=== PATIENT | male | born 1940 | race Caucasian/White ===

== ENCOUNTER 2016-10-28 09:35 | Inpatient (IN) | payer MEDICARE, BC ==
[~2016-10-28] VITALS: Ht 167.6 cm; Wt 63.6 kg
[~2016-10-28 09:35] MED LIST: ASPI-515 PO; BISA10SU54 PR; CIPR250T27 PO; FINA5TAB PO; HYDR-3240 PO; TERA1CAP3 PO
[2016-10-28] MEDS ORDERED: ASPIRIN 81 MG TABLET CHEW ONE (10:49)
[2016-10-28] MEDS ORDERED: ASPIRIN 81 MG TABLET CHEW PO ONE (11:00)
[2016-10-28] MEDS ORDERED: SODIUM CHLORIDE FLUSH 10ML SYR IVF ONE (11:00)
[2016-10-28 11:01] LABS: BLOOD UREA NITROGEN 22 mg/dL (7-18)
[2016-10-28 11:07] LABS: ASPARTATE AMINO TRANSFERASE 30 U/L (15-37)
[2016-10-28 11:10] LABS: IS PT STATUS REG ER OR PRE ER? YES
[2016-10-28] MEDS ORDERED: LISINOPRIL 10 MG TABLET PO SCH (12:00)
[2016-10-28] MEDS ORDERED: BISACODYL 10 MG SUPP PR PRN (12:30)
[2016-10-28] MEDS ORDERED: ACETAMINOPHEN 325 MG TABLET PO PRN (12:30)
[2016-10-28] MEDS ORDERED: DOCUSATE 100 MG CAPSULE PO PRN (12:30)
[2016-10-28] MEDS ORDERED: HEPARIN 5,000 UNITS/ML, 1ML IV PRN (12:30)
[2016-10-28] MEDS ORDERED: POLYETHYLENE GLYCOL 17 GM PACKET PO PRN (12:30)
[2016-10-28] MEDS ORDERED: MORPHINE SULFATE 4 MG/ML, 1ML IVPush PRN (12:30)
[2016-10-28] MEDS ORDERED: HEPARIN 5,000 UNITS/ML, 1ML IV ONE (12:30)
[2016-10-28] MEDS ORDERED: HEPARIN 25,000 UNITS/500ML PMX 500 ML IV PRN (12:30)
[2016-10-28 13:36] VITALS: BP 175/93
[2016-10-28 14:00] VITALS: BP 175/93
[2016-10-28] MEDS ORDERED: LISINOPRIL 5 MG TABLET PO SCH (16:25)
[2016-10-28 18:13] LABS: IS PT STATUS REG ER OR PRE ER? NO
[2016-10-28 20:24] VITALS: BP 140/79
[2016-10-28] MEDS: ATORVASTATIN 80 MG TABLET PO SCH (21:39)
[2016-10-29 00:13] LABS: IS PT STATUS REG ER OR PRE ER? NO
[2016-10-29 01:31] VITALS: BP 138/74
[2016-10-29 05:25] LABS: ASPARTATE AMINO TRANSFERASE 25 U/L (15-37); BLOOD UREA NITROGEN 23 mg/dL (7-18)
[2016-10-29] MEDS: ASPIRIN 81 MG TABLET EC PO SCH (06:09)
[2016-10-29 07:05] VITALS: BP 142/79
[2016-10-29] MEDS: METOPROLOL TARTRATE 25 MG TABLET PO SCH ×2 (08:51→18:34)
[2016-10-29] MEDS ORDERED: VERAPAMIL 2.5 MG/ML, 2ML ONE (12:05)
[2016-10-29] MEDS ORDERED: MIDAZOLAM 1 MG/ML, 5ML ONE (12:05)
[2016-10-29] MEDS ORDERED: TICAGRELOR 90 MG TABLET ONE (12:05)
[2016-10-29] MEDS ORDERED: BIVALIRUDIN 250 MG ONE (12:05)
[2016-10-29] MEDS ORDERED: HEPARIN 1,000 UNITS/ML, 10ML ONE (12:05)
[2016-10-29] MEDS ORDERED: NITROGLYCERIN 5 MG/ML, 10ML ONE (12:05)
[2016-10-29] MEDS ORDERED: FENTANYL PF 100 MCG/2ML ONE (12:05)
[2016-10-29] MEDS ORDERED: LIDOCAINE 2%, 20ML ONE (12:05)
[2016-10-29 13:42] VITALS: BP 127/81
[2016-10-29] MEDS: ATORVASTATIN 80 MG TABLET PO SCH (19:51)
[2016-10-29 21:46] VITALS: BP 151/79
[2016-10-30 01:29] VITALS: BP 122/74
[2016-10-30] MEDS: ASPIRIN 81 MG TABLET EC PO SCH (05:26)
[2016-10-30] MEDS: METOPROLOL TARTRATE 25 MG TABLET PO SCH (05:27)
[2016-10-30 05:56] LABS: BLOOD UREA NITROGEN 25 mg/dL (7-18)
[2016-10-30 07:25] VITALS: BP 123/77
[2016-10-30] MEDS ORDERED: ATOR80TA75 PO (08:02)
[2016-10-30] MEDS ORDERED: LISI-167 PO (08:02)
[2016-10-30] MEDS ORDERED: ASPI-621 PO (08:02)
[2016-10-30] MEDS ORDERED: CLOP75TA22 PO (08:09)
[2016-10-30] MEDS ORDERED: LISINOPRIL 10 MG TABLET PO SCH (09:00)
== END 2016-10-30 10:15 | disposition home or self-care (01) | DRG 281 ==
LOC: ED 10:35 → EDIP 11:40 → 5SO 13:04 → DCLOUNGE 10-30 09:48
PROVIDERS: ADMIT Family Medicine
PROC: 4A023N7 Measurement of Cardiac Sampling and Pressure, Left Heart, Percutaneous Approach (ICD-10-PCS; principal; 2016-10-29)
PROC: B2111ZZ Fluoroscopy of Multiple Coronary Arteries using Low Osmolar Contrast (ICD-10-PCS; 2016-10-29)
PROC: B2131ZZ Fluoroscopy of Multiple Coronary Artery Bypass Grafts using Low Osmolar Contrast (ICD-10-PCS; 2016-10-29)
PROC: B2151ZZ Fluoroscopy of Left Heart using Low Osmolar Contrast (ICD-10-PCS; 2016-10-29)
DX: I21.4 Non-ST elevation (NSTEMI) myocardial infarction (principal); E44.1 Mild protein-calorie malnutrition; I44.7 Left bundle-branch block, unspecified; I25.110 Atherosclerotic heart disease of native coronary artery with unstable angina pectoris; D64.9 Anemia, unspecified; E78.5 Hyperlipidemia, unspecified; H35.30 Unspecified macular degeneration; R19.5 Other fecal abnormalities; I11.9 Hypertensive heart disease without heart failure; N40.0 Benign prostatic hyperplasia without lower urinary tract symptoms; Z66 Do not resuscitate; Z79.82 Long term (current) use of aspirin; Z87.891 Personal history of nicotine dependence; Z90.49 Acquired absence of other specified parts of digestive tract; Z95.1 Presence of aortocoronary bypass graft
CPT/HCPCS: 36415; 71010; 80048; 80053; 80061; 81001; 83690; 83735; 84100; 84443; 84484; 85025; 85520; 85610; 85730; 87086; 87106; 93005; 93306; 93459; C1760; C1769; C1894; J0583; J1644; J2250; J3010; J3490; Q9967

== ENCOUNTER 2016-11-02 21:28 | Inpatient (IN) | payer MEDICARE, BC ==
[~2016-11-02] VITALS: Ht 167.6 cm; Wt 64.8 kg
[~2016-11-02 21:28] MED LIST changes: +ASPI-621 PO; +ATOR80TA75 PO; +CLOP75TA22 PO; +LISI-167 PO
[2016-11-02 23:34] LABS: ASPARTATE AMINO TRANSFERASE 28 U/L (15-37); BLOOD UREA NITROGEN 28 mg/dL (7-18)
[2016-11-03 05:14] LABS: IS PT STATUS REG ER OR PRE ER? YES
[2016-11-03] MEDS ORDERED: SODIUM CHLORIDE 0.9% 1,000 ML IV ONE (06:25)
[2016-11-03] MEDS ORDERED: ONDANSETRON 2MG/ML, 2ML IVPush PRN ×2 (06:30→13:00)
[2016-11-03] MEDS ORDERED: MORPHINE SULFATE 4 MG/ML, 1ML IVPush PRN (06:30)
[2016-11-03] MEDS ORDERED: CLOPIDOGREL 75 MG TABLET PO SCH (09:00)
[2016-11-03] MEDS ORDERED: OMNIPAQUE 350 MG/ML, 150 ML BOTTLE ONE (09:06)
[2016-11-03 09:19] VITALS: BP 146/78
[2016-11-03] MEDS: LISINOPRIL 10 MG TABLET PO SCH (10:47)
[2016-11-03] MEDS: SODIUM CHLORIDE 0.9% 1,000 ML IV SCH ×3 (10:47→23:18)
[2016-11-03] MEDS ORDERED: MIDAZOLAM 1 MG/ML, 2ML ONE (11:39)
[2016-11-03] MEDS ORDERED: FENTANYL PF 250 MCG/5ML ONE (11:39)
[2016-11-03] MEDS ORDERED: ETOMIDATE 20 MG/10 ML ONE (12:05)
[2016-11-03] MEDS ORDERED: EPHEDRINE 50 MG/ML, 1ML ONE (12:05)
[2016-11-03] MEDS ORDERED: PHENYLEPHRINE 10 MG/ML ONE (12:05)
[2016-11-03] MEDS ORDERED: LABETALOL 5MG/ML, 20ML IV PRN (13:00)
[2016-11-03] MEDS ORDERED: EPHEDRINE 50 MG/ML, 1ML IVPush PRN (13:00)
[2016-11-03] MEDS ORDERED: FENTANYL PF 100 MCG/2ML IV PRN (13:00)
[2016-11-03] MEDS ORDERED: hydrALAzine 20 MG/ML, 1ML IV PRN (13:00)
[2016-11-03] MEDS ORDERED: METOCLOPRAMIDE 5 MG/ML, 2ML IV PRN (13:00)
[2016-11-03] MEDS ORDERED: HYDROmorphone 1 MG/ML, 1ML IV PRN (13:00)
[2016-11-03] MEDS ORDERED: ACETAMINOPHEN 325 MG TABLET PO PRN (13:00)
[2016-11-03] MEDS ORDERED: METOPROLOL 1 MG/ML, 5ML IV PRN (13:00)
[2016-11-03] MEDS ORDERED: PROMETHAZINE 25 MG/ML, 1ML IV PRN (13:00)
[2016-11-03] MEDS ORDERED: OXYcodone 5 MG/5 ML ORAL.SOL UDC ONE ×2 (13:04→13:43)
[2016-11-03] MEDS: OXYcodone 5 MG/5 ML ORAL.SOL UDC PO PRN ×2 (13:05→13:40)
[2016-11-03] MEDS ORDERED: FENTANYL PF 100 MCG/2ML ONE (13:43)
[2016-11-03 13:57] VITALS: BP 111/64
[2016-11-03 20:00] VITALS: BP 99/62
[2016-11-03] MEDS: ATORVASTATIN 80 MG TABLET PO SCH (22:00)
[2016-11-03] MEDS: ONDANSETRON 2MG/ML, 2ML IVP PRN (23:13)
[2016-11-04 01:44] VITALS: BP 107/60
[2016-11-04 06:05] LABS: BLOOD UREA NITROGEN 22 mg/dL (7-18)
[2016-11-04 07:48] VITALS: BP 103/58
[2016-11-04] MEDS: LISINOPRIL 10 MG TABLET PO SCH (09:31)
[2016-11-04] MEDS: SODIUM CHLORIDE 0.9% 1,000 ML IV SCH ×2 (09:34→20:00)
[2016-11-04 13:41] VITALS: BP 101/61
[2016-11-04] MEDS: FINASTERIDE 5 MG TABLET PO SCH (13:44)
[2016-11-04 19:25] VITALS: BP 103/62
[2016-11-04] MEDS: ATORVASTATIN 80 MG TABLET PO SCH (20:56)
[2016-11-05] VITALS (10 sets, daily range): BP systolic 91–117; BP diastolic 54–72
[2016-11-05 06:54] LABS: BLOOD UREA NITROGEN 19 mg/dL (7-18)
[2016-11-05] MEDS: LISINOPRIL 10 MG TABLET PO SCH (08:59)
[2016-11-05] MEDS: FINASTERIDE 5 MG TABLET PO SCH (09:00)
[2016-11-05] MEDS: SODIUM CHLORIDE 0.9% 1,000 ML IV SCH (13:14)
[2016-11-05] MEDS: ATORVASTATIN 80 MG TABLET PO SCH (20:14)
[2016-11-06 01:42] VITALS: BP 106/73
[2016-11-06] MEDS: SODIUM CHLORIDE 0.9% 1,000 ML IV SCH ×3 (02:00→22:00)
[2016-11-06 06:28] LABS: BLOOD UREA NITROGEN 18 mg/dL (7-18)
[2016-11-06 07:09] VITALS: BP 114/68
[2016-11-06] MEDS: LISINOPRIL 10 MG TABLET PO SCH (08:52)
[2016-11-06] MEDS: FINASTERIDE 5 MG TABLET PO SCH (08:52)
[2016-11-06] MEDS: FLUCONAZOLE 400 MG/200 ML 200 ML IV SCH (08:53)
[2016-11-06 13:34] VITALS: BP 153/89
[2016-11-06 18:48] VITALS: BP 159/93
[2016-11-06] MEDS: ATORVASTATIN 80 MG TABLET PO SCH (21:24)
[2016-11-07 01:09] VITALS: BP 152/87
[2016-11-07 06:57] VITALS: BP 149/89
[2016-11-07] MEDS: SODIUM CHLORIDE 0.9% 1,000 ML IV SCH ×2 (08:00→22:10)
[2016-11-07] MEDS: ACETAMINOPHEN 325 MG TABLET PO PRN (08:14)
[2016-11-07] MEDS: ONDANSETRON 2MG/ML, 2ML IVP PRN (08:14)
[2016-11-07] MEDS: FINASTERIDE 5 MG TABLET PO SCH (09:01)
[2016-11-07] MEDS: LISINOPRIL 10 MG TABLET PO SCH (09:01)
[2016-11-07] MEDS: FLUCONAZOLE 400 MG/200 ML 200 ML IV SCH (09:02)
[2016-11-07 12:37] LABS: BLOOD UREA NITROGEN 11 mg/dL (7-18)
[2016-11-07 13:05] VITALS: BP 124/80
[2016-11-07 17:44] VITALS: BP 143/95
[2016-11-07 21:38] VITALS: BP 128/74
[2016-11-07] MEDS: ATORVASTATIN 80 MG TABLET PO SCH (22:10)
[2016-11-07] MEDS ORDERED: OPIUM/BELLADONNA SUPP.RECT 16.2-30 MG PR PRN (23:30)
[2016-11-08 00:27] VITALS: BP 127/76
[2016-11-08] MEDS: ACETAMINOPHEN 325 MG TABLET PO PRN (01:28)
[2016-11-08 08:27] VITALS: BP 109/59
[2016-11-08] MEDS: SODIUM CHLORIDE 0.9% 1,000 ML IV SCH ×2 (09:18→20:20)
[2016-11-08] MEDS: FLUCONAZOLE 400 MG/200 ML 200 ML IV SCH (09:18)
[2016-11-08] MEDS: FINASTERIDE 5 MG TABLET PO SCH (09:19)
[2016-11-08] MEDS: LISINOPRIL 10 MG TABLET PO SCH (09:19)
[2016-11-08 14:00] VITALS: BP 128/73
[2016-11-08] MEDS ORDERED: LEVOFLOXACIN/PMX 750MG/150ML 150 ML IV SCH (15:30)
[2016-11-08] MEDS ORDERED: KETOROLAC 30 MG/1 ML IVPush PRN (17:00)
[2016-11-08 19:22] VITALS: BP 119/68
[2016-11-08] MEDS: ATORVASTATIN 80 MG TABLET PO SCH (20:19)
[2016-11-09 00:24] VITALS: BP 132/72
[2016-11-09] MEDS: SODIUM CHLORIDE 0.9% 1,000 ML IV SCH ×2 (06:45→16:00)
[2016-11-09 07:20] VITALS: BP 136/61
[2016-11-09] MEDS: FLUCONAZOLE 400 MG/200 ML 200 ML IV SCH (07:29)
[2016-11-09] MEDS: FINASTERIDE 5 MG TABLET PO SCH (08:37)
[2016-11-09] MEDS: LISINOPRIL 10 MG TABLET PO SCH (08:37)
[2016-11-09 14:21] VITALS: BP 154/88
[2016-11-09 18:35] VITALS: BP 140/108
[2016-11-09 19:35] VITALS: BP 127/86
[2016-11-09] MEDS: ATORVASTATIN 80 MG TABLET PO SCH (22:13)
[2016-11-10 01:37] VITALS: BP 185/91
[2016-11-10] MEDS: SODIUM CHLORIDE 0.9% 1,000 ML IV SCH (02:00)
[2016-11-10 07:25] VITALS: BP 129/67
[2016-11-10] MEDS: LISINOPRIL 10 MG TABLET PO SCH (08:24)
[2016-11-10] MEDS: FINASTERIDE 5 MG TABLET PO SCH (08:24)
[2016-11-10] MEDS: FLUCONAZOLE 400 MG/200 ML 200 ML IV SCH (08:24)
[2016-11-10] MEDS ORDERED: FINA5TAB4 PO (09:28)
[2016-11-10] MEDS ORDERED: TAMS-11 PO (09:29)
[2016-11-10 12:45] VITALS: BP 134/71
== END 2016-11-10 14:15 | disposition home or self-care (01) | DRG 690 ==
LOC: ED 11-03 00:22 → EDIP 11-03 06:25 → 5SO 11-03 09:11 → 3NE 11-07 17:36
PROVIDERS: ADMIT Internal Medicine; ATTEND Internal Medicine
PROC: 0TCB8ZZ Extirpation of Matter from Bladder, Via Natural or Artificial Opening Endoscopic (ICD-10-PCS; principal; 2016-11-03 12:00)
PROC: 30233N1 Transfusion of Nonautologous Red Blood Cells into Peripheral Vein, Percutaneous Approach (ICD-10-PCS; 2016-11-05)
DX: N30.01 Acute cystitis with hematuria (principal); B37.41 Candidal cystitis and urethritis; D62 Acute posthemorrhagic anemia; I50.30 Unspecified diastolic (congestive) heart failure; I65.22 Occlusion and stenosis of left carotid artery; N40.1 Benign prostatic hyperplasia with lower urinary tract symptoms; I25.10 Atherosclerotic heart disease of native coronary artery without angina pectoris; H35.30 Unspecified macular degeneration; I11.0 Hypertensive heart disease with heart failure; R33.8 Other retention of urine; N28.1 Cyst of kidney, acquired; Z66 Do not resuscitate; Z90.49 Acquired absence of other specified parts of digestive tract; Z95.1 Presence of aortocoronary bypass graft; Z79.82 Long term (current) use of aspirin; I25.2 Old myocardial infarction; Z79.899 Other long term (current) drug therapy; Z88.0 Allergy status to penicillin; Z88.1 Allergy status to other antibiotic agents; T45.525A Adverse effect of antithrombotic drugs, initial encounter
CPT/HCPCS: 36415; 71010; 74178; 76770; 80048; 80053; 81001; 83735; 84484; 85025; 86850; 86900; 86923; 87077; 87086; 87106; 87186; 87324; 93005; 93880; 96360; J1450; J1885; J2250; J2405; J3010; Q9967; J2370; J7030; P9016

== ENCOUNTER 2017-01-02 09:50 | Emergency (ER) | payer MEDICARE, BC ==
[~2017-01-02] VITALS: Ht 167.6 cm; Wt 65.3 kg
[~2017-01-02 09:50] MED LIST changes: +FINA5TAB4 PO; +TAMS-11 PO
[2017-01-02 11:22] LABS: BLOOD UREA NITROGEN 26 mg/dL (7-18)
[2017-01-02] MEDS ORDERED: CEFTRIAXONE PMX 1GM/50ML 50 ML IV ONE (12:00)
[2017-01-02 12:29] VITALS: BP 144/83
== END 2017-01-02 12:31 | disposition home or self-care (01) ==
LOC: ED 12:02
DX: N40.1 Benign prostatic hyperplasia with lower urinary tract symptoms (principal); N30.01 Acute cystitis with hematuria; Z20.2 Contact with and (suspected) exposure to infections with a predominantly sexual mode of transmission
CPT/HCPCS: 36415; 51702; 74176; 80048; 81001; 82040; 85025; 85610; 85730; 87077; 87086; 87186

== ENCOUNTER 2017-01-04 02:45 | Emergency (ER) | payer MEDICARE, BC ==
[~2017-01-04] VITALS: Ht 167.6 cm; Wt 65.1 kg
[2017-01-04 05:20] VITALS: BP 104/57
== END 2017-01-04 05:26 | disposition home or self-care (01) ==
LOC: ED 03:09
DX: N40.1 Benign prostatic hyperplasia with lower urinary tract symptoms (principal); R33.8 Other retention of urine
CPT/HCPCS: 81001; 87077; 87086; 87186; 99284

== ENCOUNTER 2017-01-14 12:46 | Emergency (ER) | payer MEDICARE, BC ==
[~2017-01-14] VITALS: Ht 167.6 cm; Wt 63.5 kg
[2017-01-14 12:51] VITALS: BP 137/84
[2017-01-14] MEDS ORDERED: OXYcodone/APAP 5/325MG TABLET PO ONE (14:00)
[2017-01-14] MEDS ORDERED: OXYcodone/APAP 10/325MG TABLET ONE (14:20)
[2017-01-14 14:49] LABS: BLOOD UREA NITROGEN 22 mg/dL (7-18)
== END 2017-01-14 15:35 | disposition home or self-care (01) ==
LOC: ED 14:16
DX: M25.522 Pain in left elbow (principal); M13.122 Monoarthritis, not elsewhere classified, left elbow; I25.810 Atherosclerosis of coronary artery bypass graft(s) without angina pectoris; Z95.1 Presence of aortocoronary bypass graft
CPT/HCPCS: 36415; 80048; 84550; 85025; 99285

== ENCOUNTER 2017-06-30 09:48 | Inpatient (IN) | payer MEDICARE, BC ==
[~2017-06-30] VITALS: Ht 167.6 cm; Wt 62.9 kg
[~2017-06-30 09:48] MED LIST changes: +ATOR-2 PO; -ATOR80TA75 PO; -CLOP75TA22 PO; +CLOP75TA52 PO
[2017-06-30] MEDS ORDERED: ASPI-496 PO (10:00)
[2017-06-30 10:45] LABS: BASOPHILS # (AUTO) 0.04 x10^3/uL (0-0.1); BASOPHILS % (AUTO) 1 % (0-1); EOSINOPHILS # (AUTO) 0.12 x10^3/uL (0-0.4); EOSINOPHILS % (AUTO) 3 % (1-7); LYMPHOCYTES # (AUTO) 0.84 x10^3/uL (1-3.4); LYMPHOCYTES % (AUTO) 17 % (22-44); MD NO; MEAN CORPUSCULAR HEMOGLOBIN 25.2 pg (27.5-34.5); MEAN CORPUSCULAR HGB CONC 31.5 g/dL (33.2-36.2); MEAN CORPUSCULAR VOLUME 79.9 fL (81-97); MEAN PLATELET VOLUME 7.8 fL (7.4-10.4); MONOCYTES # (AUTO) 0.52 x10^3/uL (0.2-0.8); MONOCYTES % (AUTO) 11 % (2-9); NEUTROPHILS # (AUTO) 3.37 x10^3/uL (1.8-6.8); NEUTROPHILS % (AUTO) 69 % (42-75); PLATELET COUNT 224 x10^3/uL (130-400); RED BLOOD COUNT 4.21 x10^6/uL (4.38-5.82); RED CELL DISTRIBUTION WIDTH 17.9 % (9.4-14.8)
[2017-06-30 10:56] LABS: ALANINE AMINOTRANSFERASE 18 U/L (12-78); ANION GAP 6 mmol/L (5-15); CALCIUM 8.1 mg/dL (8.5-10.1); CHLORIDE 106 mmol/L (98-107)
[2017-06-30 10:59] LABS: ALKALINE PHOSPHATASE 61 U/L (45-117); BILIRUBIN,TOTAL 0.7 mg/dL (0.2-1.0); CREATININE 0.93 mg/dL (0.7-1.3); TOTAL PROTEIN 6.5 g/dL (6.4-8.2)
[2017-06-30 11:13] LABS: MICROSCOPIC INDICATED
[2017-06-30 11:17] LABS: CULTURE INDICATED? YES
[2017-06-30] MEDS ORDERED: CEFTRIAXONE 1,000 MG ONE (11:45)
[2017-06-30] MEDS ORDERED: CEFTRIAXONE 1,000 MG IM ONE (12:00)
[2017-06-30 12:06] LABS: INTERNATIONAL NORMALIZED RATIO 1.04 (0.93-1.1); PROTHROMBIN TIME 10.7 Seconds (9.6-11.5)
[2017-06-30] MEDS ORDERED: ONDANSETRON 2MG/ML, 2ML IVPush PRN (13:30)
[2017-06-30] MEDS ORDERED: ACETAMINOPHEN 325 MG TABLET PO PRN (13:30)
[2017-06-30] MEDS ORDERED: DOCUSATE 100 MG CAPSULE PO PRN (13:30)
[2017-06-30 15:18] VITALS: BP 153/91
[2017-06-30] MEDS: SODIUM CHLORIDE 0.9% 1,000 ML IV SCH (15:35)
[2017-06-30 15:47] VITALS: BP 139/85
[2017-06-30] MEDS: FINASTERIDE 5 MG TABLET PO SCH (16:46)
[2017-06-30 19:26] VITALS: BP 120/72
[2017-07-01] MEDS: SODIUM CHLORIDE 0.9% 1,000 ML IV SCH ×3 (01:04→20:52)
[2017-07-01 01:33] VITALS: BP 142/82
[2017-07-01 05:59] LABS: BASOPHILS # (AUTO) 0.03 x10^3/uL (0-0.1); BASOPHILS % (AUTO) 1 % (0-1); EOSINOPHILS # (AUTO) 0.08 x10^3/uL (0-0.4); EOSINOPHILS % (AUTO) 2 % (1-7); LYMPHOCYTES # (AUTO) 0.99 x10^3/uL (1-3.4); LYMPHOCYTES % (AUTO) 18 % (22-44); MD NO; MEAN CORPUSCULAR HEMOGLOBIN 25.9 pg (27.5-34.5); MEAN CORPUSCULAR HGB CONC 32.3 g/dL (33.2-36.2); MEAN CORPUSCULAR VOLUME 80.2 fL (81-97); MEAN PLATELET VOLUME 8.2 fL (7.4-10.4); MONOCYTES # (AUTO) 0.57 x10^3/uL (0.2-0.8); MONOCYTES % (AUTO) 10 % (2-9); NEUTROPHILS # (AUTO) 3.89 x10^3/uL (1.8-6.8); NEUTROPHILS % (AUTO) 70 % (42-75); PLATELET COUNT 221 x10^3/uL (130-400); RED BLOOD COUNT 4.12 x10^6/uL (4.38-5.82); RED CELL DISTRIBUTION WIDTH 17.9 % (9.4-14.8)
[2017-07-01 06:08] LABS: ALBUMIN 2.8 g/dL (3.4-5.0); ANION GAP 5 mmol/L (5-15); CALCIUM 8.4 mg/dL (8.5-10.1); CHLORIDE 109 mmol/L (98-107)
[2017-07-01 06:10] LABS: ALANINE AMINOTRANSFERASE 15 U/L (12-78); ALKALINE PHOSPHATASE 65 U/L (45-117); BILIRUBIN,TOTAL 0.8 mg/dL (0.2-1.0); CREATININE 0.89 mg/dL (0.7-1.3); TOTAL PROTEIN 6.4 g/dL (6.4-8.2)
[2017-07-01 07:56] VITALS: BP 156/79
[2017-07-01] MEDS ORDERED: CEFTRIAXONE PMX 1GM/50ML 50 ML IV SCH (08:00)
[2017-07-01] MEDS: FINASTERIDE 5 MG TABLET PO SCH (08:02)
[2017-07-01 11:24] LABS: CHOL/HDL RATIO 3.5; LDL/HDL RATIO 2.2 (0.5-3.0)
[2017-07-01] MEDS: CEFTRIAXONE 1,000 MG in DEXTROSE 5% 50 ML IV SCH (12:35)
[2017-07-01 15:10] VITALS: BP 136/79
[2017-07-01 19:28] VITALS: BP 131/74
[2017-07-02 01:28] VITALS: BP 156/90
[2017-07-02 05:04] LABS: ANION GAP 6 mmol/L (5-15); CALCIUM 8.1 mg/dL (8.5-10.1); CHLORIDE 108 mmol/L (98-107); CREATININE 0.92 mg/dL (0.7-1.3)
[2017-07-02 05:05] LABS: BASOPHILS # (AUTO) 0.02 x10^3/uL (0-0.1); BASOPHILS % (AUTO) 0 % (0-1); EOSINOPHILS # (AUTO) 0.14 x10^3/uL (0-0.4); EOSINOPHILS % (AUTO) 2 % (1-7); LYMPHOCYTES # (AUTO) 1.05 x10^3/uL (1-3.4); LYMPHOCYTES % (AUTO) 17 % (22-44); MD NO; MEAN CORPUSCULAR HEMOGLOBIN 25.9 pg (27.5-34.5); MEAN CORPUSCULAR HGB CONC 31.9 g/dL (33.2-36.2); MEAN CORPUSCULAR VOLUME 81.1 fL (81-97); MEAN PLATELET VOLUME 8.1 fL (7.4-10.4); MONOCYTES # (AUTO) 0.61 x10^3/uL (0.2-0.8); MONOCYTES % (AUTO) 10 % (2-9); NEUTROPHILS # (AUTO) 4.24 x10^3/uL (1.8-6.8); NEUTROPHILS % (AUTO) 70 % (42-75); PLATELET COUNT 236 x10^3/uL (130-400); RED BLOOD COUNT 4.21 x10^6/uL (4.38-5.82); RED CELL DISTRIBUTION WIDTH 17.5 % (9.4-14.8)
[2017-07-02 08:15] VITALS: BP 166/95
[2017-07-02] MEDS: SODIUM CHLORIDE 0.9% 1,000 ML IV SCH ×3 (08:30→20:18)
[2017-07-02] MEDS: FINASTERIDE 5 MG TABLET PO SCH (10:08)
[2017-07-02] MEDS: CEFTRIAXONE 1,000 MG in DEXTROSE 5% 50 ML IV SCH (12:27)
[2017-07-02 14:51] VITALS: BP 125/77
[2017-07-02] MEDS: AMLODIPINE 5 MG TABLET PO SCH (14:59)
[2017-07-02] MEDS: SIMETHICONE 125 MG CHEW TAB PO SCH ×2 (17:56→20:17)
[2017-07-02 20:16] VITALS: BP 113/65
[2017-07-03 02:39] VITALS: BP 133/80
[2017-07-03 05:59] LABS: BASOPHILS # (AUTO) 0.02 x10^3/uL (0-0.1); BASOPHILS % (AUTO) 0 % (0-1); EOSINOPHILS # (AUTO) 0.11 x10^3/uL (0-0.4); EOSINOPHILS % (AUTO) 2 % (1-7); LYMPHOCYTES # (AUTO) 1.25 x10^3/uL (1-3.4); LYMPHOCYTES % (AUTO) 18 % (22-44); MD NO; MEAN CORPUSCULAR HEMOGLOBIN 25.7 pg (27.5-34.5); MEAN CORPUSCULAR HGB CONC 31.9 g/dL (33.2-36.2); MEAN CORPUSCULAR VOLUME 80.6 fL (81-97); MEAN PLATELET VOLUME 7.9 fL (7.4-10.4); MONOCYTES # (AUTO) 0.73 x10^3/uL (0.2-0.8); MONOCYTES % (AUTO) 11 % (2-9); NEUTROPHILS # (AUTO) 4.75 x10^3/uL (1.8-6.8); NEUTROPHILS % (AUTO) 69 % (42-75); PLATELET COUNT 231 x10^3/uL (130-400); RED BLOOD COUNT 4.19 x10^6/uL (4.38-5.82); RED CELL DISTRIBUTION WIDTH 17.8 % (9.4-14.8)
[2017-07-03 06:11] LABS: CHLORIDE 108 mmol/L (98-107)
[2017-07-03 06:22] LABS: ANION GAP 7 mmol/L (5-15); CALCIUM 8.4 mg/dL (8.5-10.1); CREATININE 0.86 mg/dL (0.7-1.3)
[2017-07-03] MEDS: SIMETHICONE 125 MG CHEW TAB PO SCH ×4 (06:41→20:49)
[2017-07-03 08:04] VITALS: BP 150/82
[2017-07-03] MEDS: FINASTERIDE 5 MG TABLET PO SCH (08:47)
[2017-07-03] MEDS: AMLODIPINE 5 MG TABLET PO SCH (08:47)
[2017-07-03] MEDS: CEFTRIAXONE 1,000 MG in DEXTROSE 5% 50 ML IV SCH (12:38)
[2017-07-03 13:46] VITALS: BP 122/76
[2017-07-03] MEDS: SODIUM CHLORIDE 0.9% 1,000 ML IV SCH (14:30)
[2017-07-03 20:33] VITALS: BP 133/77
[2017-07-04] MEDS: SODIUM CHLORIDE 0.9% 1,000 ML IV SCH ×3 (00:30→20:30)
[2017-07-04 01:32] VITALS: BP 143/82
[2017-07-04 04:44] LABS: BASOPHILS # (AUTO) 0.04 x10^3/uL (0-0.1); BASOPHILS % (AUTO) 1 % (0-1); EOSINOPHILS # (AUTO) 0.13 x10^3/uL (0-0.4); EOSINOPHILS % (AUTO) 2 % (1-7); LYMPHOCYTES # (AUTO) 1.11 x10^3/uL (1-3.4); LYMPHOCYTES % (AUTO) 17 % (22-44); MD NO; MEAN CORPUSCULAR HEMOGLOBIN 25.9 pg (27.5-34.5); MEAN CORPUSCULAR HGB CONC 31.9 g/dL (33.2-36.2); MEAN CORPUSCULAR VOLUME 81.2 fL (81-97); MEAN PLATELET VOLUME 7.8 fL (7.4-10.4); MONOCYTES # (AUTO) 0.62 x10^3/uL (0.2-0.8); MONOCYTES % (AUTO) 10 % (2-9); NEUTROPHILS # (AUTO) 4.65 x10^3/uL (1.8-6.8); NEUTROPHILS % (AUTO) 71 % (42-75); PLATELET COUNT 260 x10^3/uL (130-400); RED BLOOD COUNT 4.27 x10^6/uL (4.38-5.82); RED CELL DISTRIBUTION WIDTH 17.9 % (9.4-14.8)
[2017-07-04 04:50] LABS: ANION GAP 5 mmol/L (5-15); CALCIUM 8.4 mg/dL (8.5-10.1); CHLORIDE 108 mmol/L (98-107); CREATININE 0.88 mg/dL (0.7-1.3)
[2017-07-04 07:19] VITALS: BP 133/77
[2017-07-04] MEDS: SIMETHICONE 125 MG CHEW TAB PO SCH ×4 (08:11→22:43)
[2017-07-04] MEDS: FINASTERIDE 5 MG TABLET PO SCH (08:11)
[2017-07-04] MEDS: AMLODIPINE 5 MG TABLET PO SCH (08:11)
[2017-07-04] MEDS: SULFAMETH./TRIMETHOPRIM DS 800MG/160MG TABLET PO SCH ×2 (08:11→22:43)
[2017-07-04 10:38] LABS: % IRON SATURATION 7 % (20-55); IRON LEVEL 21 mcg/dL (65-175); TOTAL IRON BINDING CAPACITY 307 mcg/dL (250-450)
[2017-07-04 13:48] VITALS: BP 138/81
[2017-07-04] MEDS ORDERED: IRON DEXTRAN IV PER PHARMACY IV PRN (17:00)
[2017-07-04] MEDS ORDERED: IRON DEXTRAN COMPLEX 25 MG in SODIUM CHLORIDE 0.9% 50 ML IV ONE (17:00)
[2017-07-04] MEDS ORDERED: IRON DEXTRAN COMPLEX IV ONE (19:00)
[2017-07-04] MEDS ORDERED: SODIUM CHLORIDE 0.9% IV ONE (19:00)
[2017-07-04 20:35] VITALS: BP 127/73
[2017-07-05 02:21] VITALS: BP 138/83
[2017-07-05 05:45] LABS: BASOPHILS # (AUTO) 0.04 x10^3/uL (0-0.1); BASOPHILS % (AUTO) 1 % (0-1); EOSINOPHILS # (AUTO) 0.09 x10^3/uL (0-0.4); EOSINOPHILS % (AUTO) 2 % (1-7); LYMPHOCYTES # (AUTO) 0.99 x10^3/uL (1-3.4); LYMPHOCYTES % (AUTO) 16 % (22-44); MD NO; MEAN CORPUSCULAR HEMOGLOBIN 26.1 pg (27.5-34.5); MEAN CORPUSCULAR HGB CONC 32.6 g/dL (33.2-36.2); MEAN CORPUSCULAR VOLUME 80.1 fL (81-97); MEAN PLATELET VOLUME 8.2 fL (7.4-10.4); MONOCYTES # (AUTO) 0.62 x10^3/uL (0.2-0.8); MONOCYTES % (AUTO) 10 % (2-9); NEUTROPHILS # (AUTO) 4.29 x10^3/uL (1.8-6.8); NEUTROPHILS % (AUTO) 71 % (42-75); PLATELET COUNT 242 x10^3/uL (130-400); RED BLOOD COUNT 4.14 x10^6/uL (4.38-5.82); RED CELL DISTRIBUTION WIDTH 17.6 % (9.4-14.8)
[2017-07-05 05:46] LABS: ANION GAP 8 mmol/L (5-15); CALCIUM 8.4 mg/dL (8.5-10.1); CHLORIDE 107 mmol/L (98-107); CREATININE 0.94 mg/dL (0.7-1.3)
[2017-07-05] MEDS: SODIUM CHLORIDE 0.9% 1,000 ML IV SCH ×2 (06:30→16:30)
[2017-07-05] MEDS: SIMETHICONE 125 MG CHEW TAB PO SCH ×4 (08:26→20:31)
[2017-07-05] MEDS: AMLODIPINE 5 MG TABLET PO SCH (08:26)
[2017-07-05] MEDS: FINASTERIDE 5 MG TABLET PO SCH (08:26)
[2017-07-05] MEDS: SULFAMETH./TRIMETHOPRIM DS 800MG/160MG TABLET PO SCH ×2 (08:26→20:31)
[2017-07-05 10:12] LABS: BASOPHILS # (AUTO) 0.02 x10^3/uL (0-0.1); BASOPHILS % (AUTO) 0 % (0-1); EOSINOPHILS # (AUTO) 0.08 x10^3/uL (0-0.4); EOSINOPHILS % (AUTO) 1 % (1-7); LYMPHOCYTES # (AUTO) 1.03 x10^3/uL (1-3.4); LYMPHOCYTES % (AUTO) 16 % (22-44); MD NO; MEAN CORPUSCULAR HEMOGLOBIN 25.9 pg (27.5-34.5); MEAN CORPUSCULAR HGB CONC 32.1 g/dL (33.2-36.2); MEAN CORPUSCULAR VOLUME 80.7 fL (81-97); MONOCYTES # (AUTO) 0.68 x10^3/uL (0.2-0.8); MONOCYTES % (AUTO) 10 % (2-9); NEUTROPHILS # (AUTO) 4.78 x10^3/uL (1.8-6.8); NEUTROPHILS % (AUTO) 73 % (42-75); PLATELET COUNT 254 x10^3/uL (130-400); RED BLOOD COUNT 4.29 x10^6/uL (4.38-5.82)
[2017-07-05 10:26] LABS: ANION GAP 8 mmol/L (5-15); CALCIUM 8.4 mg/dL (8.5-10.1); CHLORIDE 105 mmol/L (98-107); CREATININE 1.03 mg/dL (0.7-1.3)
[2017-07-05 10:29] LABS: ABSOLUTE RETICS # 0.068 x10^6/uL (0.5-1.5); RED BLOOD COUNT 4.33 x10^6/uL (4.38-5.82); RETICULOCYTE COUNT % 1.56 % (0.5-1.5)
[2017-07-05 10:53] LABS: FOLATE LEVEL 17.6 ng/mL (3.1-17.5)
[2017-07-05 15:00] VITALS: BP 110/73
[2017-07-05 20:14] VITALS: BP 118/70
[2017-07-06 00:41] VITALS: BP 116/70
[2017-07-06] MEDS: SODIUM CHLORIDE 0.9% 1,000 ML IV SCH ×2 (02:30→12:30)
[2017-07-06 07:44] VITALS: BP 126/72
[2017-07-06] MEDS: FINASTERIDE 5 MG TABLET PO SCH (07:47)
[2017-07-06] MEDS: SIMETHICONE 125 MG CHEW TAB PO SCH ×2 (07:47→11:00)
[2017-07-06] MEDS: AMLODIPINE 5 MG TABLET PO SCH (07:47)
[2017-07-06] MEDS: SULFAMETH./TRIMETHOPRIM DS 800MG/160MG TABLET PO SCH (07:47)
[2017-07-06 12:25] VITALS: BP 123/67
[2017-07-06] MEDS ORDERED: SULF-169 PO (13:37)
[2017-07-06] MEDS ORDERED: AMLO5TAB2 PO (13:37)
[2017-07-06] MEDS ORDERED: FINA5TAB4 PO (13:37)
== END 2017-07-06 16:15 | disposition home health service (06) | DRG 690 ==
LOC: ED 12:54 → SUATTDRO 13:00 → EDIP 13:00 → 4NOR 14:01
PROVIDERS: ADMIT Family Medicine; ATTEND Family Medicine
DX: N30.01 Acute cystitis with hematuria (principal); B95.7 Other staphylococcus as the cause of diseases classified elsewhere; F03.90 Unspecified dementia, unspecified severity, without behavioral disturbance, psychotic disturbance, mood disturbance, and anxiety; N13.8 Other obstructive and reflux uropathy; N40.1 Benign prostatic hyperplasia with lower urinary tract symptoms; N39.0 Urinary tract infection, site not specified; I11.9 Hypertensive heart disease without heart failure; I10 Essential (primary) hypertension; R31.0 Gross hematuria; I25.10 Atherosclerotic heart disease of native coronary artery without angina pectoris; D50.9 Iron deficiency anemia, unspecified; H35.30 Unspecified macular degeneration; H54.7 Unspecified visual loss; K59.00 Constipation, unspecified; Z20.2 Contact with and (suspected) exposure to infections with a predominantly sexual mode of transmission; Z77.090 Contact with and (suspected) exposure to asbestos; Z79.82 Long term (current) use of aspirin; Z95.1 Presence of aortocoronary bypass graft; Z88.0 Allergy status to penicillin; Z88.2 Allergy status to sulfonamides; Z90.49 Acquired absence of other specified parts of digestive tract
CPT/HCPCS: 36415; 51702; 74022; 80048; 80053; 80061; 81001; 82607; 82746; 82747; 83540; 83550; 83735; 84100; 85025; 85045; 85610; 87040; 87077; 87086; 87186; J0696; J1750; J7030; J7050

== ENCOUNTER 2018-02-27 12:15 | Inpatient (IN) | payer MEDICARE, BC ==
[~2018-02-27] VITALS: Ht 172.7 cm; Wt 71.2 kg
[~2018-02-27 12:15] MED LIST changes: +AMLO5TAB7 PO; +ASPI-496 PO; +SULF-169 PO; +SULF1TAB23 PO
[2018-02-27] MEDS ORDERED: SODIUM CHLORIDE 0.9% 1,000 ML IV ONE (12:42)
[2018-02-27] MEDS ORDERED: LEVE500T13 PO (12:44)
[2018-02-27] MEDS ORDERED: LEVETIRACETAM 500 MG in SODIUM CHLORIDE 0.9% 100 ML IV ONE (13:00)
[2018-02-27] MEDS ORDERED: SODIUM CHLORIDE FLUSH 10ML SYR IVF ONE (13:00)
[2018-02-27 13:17] LABS: BASOPHILS # (AUTO) 0.01 x10^3/uL (0-0.1); BASOPHILS % (AUTO) 0 % (0-1); EOSINOPHILS % (AUTO) 0 % (1-7); LYMPHOCYTES # (AUTO) 0.45 x10^3/uL (1-3.4); LYMPHOCYTES % (AUTO) 3 % (22-44); MD NO; MEAN CORPUSCULAR HGB CONC 32.3 g/dL (33.2-36.2); MEAN CORPUSCULAR VOLUME 77.6 fL (81-97); MEAN PLATELET VOLUME 8.1 fL (7.4-10.4); MONOCYTES % (AUTO) 6 % (2-9); NEUTROPHILS # (AUTO) 15.97 x10^3/uL (1.8-6.8); NEUTROPHILS % (AUTO) 91 % (42-75); PLATELET COUNT 274 x10^3/uL (130-400); RED BLOOD COUNT 5.14 x10^6/uL (4.38-5.82); RED CELL DISTRIBUTION WIDTH 19.1 % (9.4-14.8)
[2018-02-27 13:23] LABS: INTERNATIONAL NORMALIZED RATIO 1.09 (0.93-1.1); PROTHROMBIN TIME 11.2 Seconds (9.6-11.5)
[2018-02-27 13:26] LABS: ALANINE AMINOTRANSFERASE 69 U/L (12-78); ALBUMIN 3.7 g/dL (3.4-5.0); ANION GAP 11 mmol/L (5-15); CALCIUM 8.6 mg/dL (8.5-10.1); CHLORIDE 108 mmol/L (98-107); CREATININE 0.99 mg/dL (0.7-1.3)
[2018-02-27 13:29] LABS: ALKALINE PHOSPHATASE 79 U/L (45-117); BILIRUBIN,TOTAL 2.4 mg/dL (0.2-1.0)
[2018-02-27 13:36] LABS: TROPONIN I 0.238 ng/mL (0.000-0.045)
[2018-02-27 13:51] LABS: CREATINE KINASE, TOTAL 7548 U/L (39-308)
[2018-02-27] MEDS ORDERED: CEFTRIAXONE PMX 1GM/50ML 50 ML IV ONE (14:00)
[2018-02-27] MEDS ORDERED: CEFTRIAXONE PMX 1GM/50ML 50 ML ONE (15:06)
[2018-02-27 15:07] LABS: CULTURE INDICATED? YES; MICROSCOPIC INDICATED
[2018-02-27 16:28] VITALS: BP 137/81
[2018-02-27] MEDS ORDERED: LABETALOL 5MG/ML, 20ML IVPush PRN (16:30)
[2018-02-27] MEDS ORDERED: ENALAPRILAT 1.25 MG/ML, 2ML IVPush PRN (16:30)
[2018-02-27] MEDS: SODIUM CHLORIDE 0.9% 1,000 ML IV SCH (16:56)
[2018-02-27] MEDS: HEPARIN 5,000 UNITS/ML, 1ML SQ SCH (16:59)
[2018-02-27 17:07] LABS: TROPONIN I 0.272 ng/mL (0.000-0.045)
[2018-02-27 19:13] VITALS: BP 143/84
[2018-02-27] MEDS: ACETAMINOPHEN 325 MG TABLET PO PRN (20:31)
[2018-02-27] MEDS: LEVETIRACETAM 500 MG TABLET PO SCH (20:31)
[2018-02-27 22:15] LABS: CULTURE INDICATED? YES; MICROSCOPIC INDICATED
[2018-02-27 22:46] LABS: TROPONIN I 0.211 ng/mL (0.000-0.045)
[2018-02-28] MEDS: SODIUM CHLORIDE 0.9% 1,000 ML IV SCH ×2 (00:07→05:52)
[2018-02-28] MEDS: HEPARIN 5,000 UNITS/ML, 1ML SQ SCH ×3 (00:09→18:10)
[2018-02-28 02:50] VITALS: BP 140/76
[2018-02-28 05:42] LABS: BASOPHILS % (AUTO) 0 % (0-1); EOSINOPHILS % (AUTO) 0 % (1-7); LYMPHOCYTES % (AUTO) 8 % (22-44); MD NO; MEAN CORPUSCULAR HEMOGLOBIN 25.4 pg (27.5-34.5); MEAN CORPUSCULAR HGB CONC 32.5 g/dL (33.2-36.2); MEAN CORPUSCULAR VOLUME 78.1 fL (81-97); MEAN PLATELET VOLUME 8.5 fL (7.4-10.4); MONOCYTES # (AUTO) 1.03 x10^3/uL (0.2-0.8); MONOCYTES % (AUTO) 11 % (2-9); NEUTROPHILS % (AUTO) 81 % (42-75); PLATELET COUNT 204 x10^3/uL (130-400); RED BLOOD COUNT 4.14 x10^6/uL (4.38-5.82)
[2018-02-28 05:49] LABS: ANION GAP 11 mmol/L (5-15); CALCIUM 7.7 mg/dL (8.5-10.1); CHLORIDE 113 mmol/L (98-107); CREATININE 0.85 mg/dL (0.7-1.3)
[2018-02-28 06:04] LABS: CREATINE KINASE, TOTAL 4651 U/L (39-308)
[2018-02-28 07:32] VITALS: BP 120/50
[2018-02-28] MEDS: LEVETIRACETAM 500 MG TABLET PO SCH ×2 (09:27→20:15)
[2018-02-28 14:24] VITALS: BP 117/61
[2018-02-28 19:20] VITALS: BP 118/71
[2018-03-01] MEDS: HEPARIN 5,000 UNITS/ML, 1ML SQ SCH ×3 (00:07→18:31)
[2018-03-01 02:27] VITALS: BP 114/66
[2018-03-01 08:50] VITALS: BP 136/73
[2018-03-01] MEDS: LEVETIRACETAM 500 MG TABLET PO SCH ×2 (08:59→20:01)
[2018-03-01 09:50] LABS: BASOPHILS # (AUTO) 0.02 x10^3/uL (0-0.1); BASOPHILS % (AUTO) 0 % (0-1); EOSINOPHILS # (AUTO) 0.11 x10^3/uL (0-0.4); EOSINOPHILS % (AUTO) 2 % (1-7); LYMPHOCYTES # (AUTO) 1.08 x10^3/uL (1-3.4); LYMPHOCYTES % (AUTO) 16 % (22-44); MD NO; MEAN CORPUSCULAR HEMOGLOBIN 24.8 pg (27.5-34.5); MEAN CORPUSCULAR HGB CONC 31.6 g/dL (33.2-36.2); MEAN CORPUSCULAR VOLUME 78.7 fL (81-97); MEAN PLATELET VOLUME 7.8 fL (7.4-10.4); MONOCYTES # (AUTO) 0.63 x10^3/uL (0.2-0.8); MONOCYTES % (AUTO) 9 % (2-9); NEUTROPHILS # (AUTO) 5.04 x10^3/uL (1.8-6.8); NEUTROPHILS % (AUTO) 73 % (42-75); PLATELET COUNT 214 x10^3/uL (130-400); RED BLOOD COUNT 4.47 x10^6/uL (4.38-5.82); RED CELL DISTRIBUTION WIDTH 19.4 % (9.4-14.8)
[2018-03-01 09:59] LABS: ALBUMIN 2.5 g/dL (3.4-5.0); ANION GAP 9 mmol/L (5-15); CALCIUM 7.9 mg/dL (8.5-10.1); CHLORIDE 112 mmol/L (98-107)
[2018-03-01] MEDS ORDERED: POLYETHYLENE GLYCOL 17 GM PACKET ONE (10:00)
[2018-03-01] MEDS: POLYETHYLENE GLYCOL 17 GM PACKET PO PRN (10:02)
[2018-03-01 10:12] LABS: ALANINE AMINOTRANSFERASE 60 U/L (12-78); ALKALINE PHOSPHATASE 57 U/L (45-117); BILIRUBIN,TOTAL 0.5 mg/dL (0.2-1.0); CREATINE KINASE, TOTAL 2488 U/L (39-308); CREATININE 0.98 mg/dL (0.7-1.3); TOTAL PROTEIN 6.1 g/dL (6.4-8.2)
[2018-03-01] MEDS ORDERED: POTASSIUM CHLORIDE 20 MEQ TAB.ER.PRT PO ONE ×2 (10:30→11:00)
[2018-03-01 13:53] VITALS: BP 135/79
[2018-03-01] MEDS ORDERED: POTASSIUM CHLORIDE 20 MEQ TAB.ER.PRT ONE (15:09)
[2018-03-01 20:48] VITALS: BP 133/77
[2018-03-02 01:02] VITALS: BP 148/70
[2018-03-02] MEDS: HEPARIN 5,000 UNITS/ML, 1ML SQ SCH ×3 (01:09→15:52)
[2018-03-02] MEDS: ACETAMINOPHEN 325 MG TABLET PO PRN (04:35)
[2018-03-02 07:23] VITALS: BP 149/87
[2018-03-02] MEDS: LEVETIRACETAM 500 MG TABLET PO SCH ×2 (08:49→20:01)
[2018-03-02 09:22] LABS: BASOPHILS # (AUTO) 0.03 x10^3/uL (0-0.1); BASOPHILS % (AUTO) 0 % (0-1); EOSINOPHILS # (AUTO) 0.04 x10^3/uL (0-0.4); EOSINOPHILS % (AUTO) 1 % (1-7); LYMPHOCYTES # (AUTO) 1.22 x10^3/uL (1-3.4); LYMPHOCYTES % (AUTO) 18 % (22-44); MD NO; MEAN CORPUSCULAR HEMOGLOBIN 24.9 pg (27.5-34.5); MEAN CORPUSCULAR HGB CONC 31.8 g/dL (33.2-36.2); MEAN CORPUSCULAR VOLUME 78.3 fL (81-97); MEAN PLATELET VOLUME 8.3 fL (7.4-10.4); MONOCYTES # (AUTO) 0.73 x10^3/uL (0.2-0.8); MONOCYTES % (AUTO) 11 % (2-9); NEUTROPHILS % (AUTO) 71 % (42-75); PLATELET COUNT 210 x10^3/uL (130-400); RED BLOOD COUNT 4.73 x10^6/uL (4.38-5.82); RED CELL DISTRIBUTION WIDTH 19.3 % (9.4-14.8)
[2018-03-02 09:33] LABS: ANION GAP 7 mmol/L (5-15); CALCIUM 8.3 mg/dL (8.5-10.1); CHLORIDE 108 mmol/L (98-107); CREATININE 0.79 mg/dL (0.7-1.3)
[2018-03-02 09:47] LABS: CREATINE KINASE, TOTAL 1513 U/L (39-308)
[2018-03-02 13:53] VITALS: BP 137/85
[2018-03-02] MEDS: LINEZOLID PMX 600MG/300ML 300 ML IV SCH (15:52)
[2018-03-02] MEDS: POLYETHYLENE GLYCOL 17 GM PACKET PO PRN (17:46)
[2018-03-02 20:17] VITALS: BP 121/73
[2018-03-02] MEDS ORDERED: BISACODYL 10 MG SUPP PR PRN (23:00)
[2018-03-03] MEDS: HEPARIN 5,000 UNITS/ML, 1ML SQ SCH ×3 (00:23→15:46)
[2018-03-03] MEDS: ACETAMINOPHEN 325 MG TABLET PO PRN (00:23)
[2018-03-03 00:41] VITALS: BP 125/69
[2018-03-03] MEDS: LINEZOLID PMX 600MG/300ML 300 ML IV SCH ×2 (04:18→15:46)
[2018-03-03 07:06] VITALS: BP 152/85
[2018-03-03 08:25] LABS: ALBUMIN 2.3 g/dL (3.4-5.0); ANION GAP 6 mmol/L (5-15); CALCIUM 8.1 mg/dL (8.5-10.1); CHLORIDE 105 mmol/L (98-107); CREATININE 0.84 mg/dL (0.7-1.3); MEAN CORPUSCULAR HEMOGLOBIN 24.9 pg (27.5-34.5); MEAN CORPUSCULAR HGB CONC 31.9 g/dL (33.2-36.2); MEAN CORPUSCULAR VOLUME 78.2 fL (81-97); MEAN PLATELET VOLUME 8.6 fL (7.4-10.4); PLATELET COUNT 197 x10^3/uL (130-400); RED BLOOD COUNT 4.39 x10^6/uL (4.38-5.82); RED CELL DISTRIBUTION WIDTH 18.8 % (9.4-14.8)
[2018-03-03 08:28] LABS: CREATINE KINASE, TOTAL 802 U/L (39-308)
[2018-03-03] MEDS: LEVETIRACETAM 500 MG TABLET PO SCH (08:31)
[2018-03-03 08:57] LABS: BASOPHILS # (AUTO) 0.02 x10^3/uL (0-0.1); BASOPHILS % (AUTO) 0 % (0-1); EOSINOPHILS # (AUTO) 0.09 x10^3/uL (0-0.4); EOSINOPHILS % (AUTO) 1 % (1-7); LYMPHOCYTES # (AUTO) 1.21 x10^3/uL (1-3.4); LYMPHOCYTES % (AUTO) 15 % (22-44); MD SCAN; MONOCYTES % (AUTO) 10 % (2-9); NEUTROPHILS # (AUTO) 5.89 x10^3/uL (1.8-6.8); NEUTROPHILS % (AUTO) 74 % (42-75)
[2018-03-03] MEDS ORDERED: LINE600T37 PO (11:26)
[2018-03-03 12:47] VITALS: BP 137/75
== END 2018-03-03 18:08 | DRG 871 ==
LOC: ED 12:54 → EDIP 14:11 → 4EST 16:00
PROVIDERS: ADMIT Hospitalist; ATTEND Hospitalist
DX: A41.9 Sepsis, unspecified organism (principal); G93.41 Metabolic encephalopathy; M62.82 Rhabdomyolysis; N39.0 Urinary tract infection, site not specified; G40.909 Epilepsy, unspecified, not intractable, without status epilepticus; D50.9 Iron deficiency anemia, unspecified; E86.0 Dehydration; H35.30 Unspecified macular degeneration; I25.10 Atherosclerotic heart disease of native coronary artery without angina pectoris; I25.2 Old myocardial infarction; I73.9 Peripheral vascular disease, unspecified; M47.897 Other spondylosis, lumbosacral region; N40.0 Benign prostatic hyperplasia without lower urinary tract symptoms; R31.0 Gross hematuria; S30.0XXA Contusion of lower back and pelvis, initial encounter; S40.011A Contusion of right shoulder, initial encounter; Z66 Do not resuscitate; Z77.090 Contact with and (suspected) exposure to asbestos; Z91.19 Patient's noncompliance with other medical treatment and regimen; Z95.1 Presence of aortocoronary bypass graft; Z90.49 Acquired absence of other specified parts of digestive tract; Z60.2 Problems related to living alone; B95.7 Other staphylococcus as the cause of diseases classified elsewhere; X58.XXXA Exposure to other specified factors, initial encounter; Y93.89 Activity, other specified; Y92.89 Other specified places as the place of occurrence of the external cause; Y99.8 Other external cause status
CPT/HCPCS: 36415; 70450; 71045; 72192; 80048; 80053; 80307; 81001; 82040; 82140; 82550; 82553; 82607; 83605; 83735; 84100; 84443; 84484; 85025; 85610; 87040; 87077; 87086; 87186; 93005; 93306; 96365; 96366; 96375; 99285; G0378; J0696; J1644; J1953; J2020; J7030

== ENCOUNTER 2018-04-14 10:21 | Emergency (ER) | payer MEDICARE, BC ==
[~2018-04-14] VITALS: Ht 157.5 cm; Wt 59.0 kg
[~2018-04-14 10:21] MED LIST changes: +LEVE500T13 PO; +LINE600T37 PO
[2018-04-14 11:49] LABS: BASOPHILS # (AUTO) 0.04 x10^3/uL (0-0.1); BASOPHILS % (AUTO) 1 % (0-1); EOSINOPHILS # (AUTO) 0.15 x10^3/uL (0-0.4); EOSINOPHILS % (AUTO) 2 % (1-7); LYMPHOCYTES # (AUTO) 1.09 x10^3/uL (1-3.4); LYMPHOCYTES % (AUTO) 18 % (22-44); MD NO; MEAN CORPUSCULAR HGB CONC 32.2 g/dL (33.2-36.2); MEAN CORPUSCULAR VOLUME 80.7 fL (81-97); MEAN PLATELET VOLUME 7.7 fL (7.4-10.4); MONOCYTES # (AUTO) 0.58 x10^3/uL (0.2-0.8); MONOCYTES % (AUTO) 10 % (2-9); NEUTROPHILS # (AUTO) 4.23 x10^3/uL (1.8-6.8); NEUTROPHILS % (AUTO) 70 % (42-75); PLATELET COUNT 389 x10^3/uL (130-400); RED BLOOD COUNT 4.21 x10^6/uL (4.38-5.82); RED CELL DISTRIBUTION WIDTH 18.8 % (9.4-14.8)
[2018-04-14 11:52] LABS: ALBUMIN 3.2 g/dL (3.4-5.0); ANION GAP 7 mmol/L (5-15); CALCIUM 8.7 mg/dL (8.5-10.1); CHLORIDE 105 mmol/L (98-107)
[2018-04-14 11:56] LABS: ALANINE AMINOTRANSFERASE 15 U/L (12-78); ALKALINE PHOSPHATASE 71 U/L (45-117); BILIRUBIN,TOTAL 0.6 mg/dL (0.2-1.0); CREATININE 1.06 mg/dL (0.7-1.3); TOTAL PROTEIN 7.6 g/dL (6.4-8.2)
[2018-04-14 12:17] LABS: CULTURE INDICATED? YES; MICROSCOPIC INDICATED
[2018-04-14] MEDS ORDERED: CEFTRIAXONE 1,000 MG IM ONE (13:00)
[2018-04-14] MEDS ORDERED: CEFTRIAXONE 1,000 MG ONE (13:26)
[2018-04-14 14:46] VITALS: BP 124/72
== END 2018-04-14 15:07 | disposition home or self-care (01) ==
LOC: ED 11:39
DX: N30.01 Acute cystitis with hematuria (principal); L89.301 Pressure ulcer of unspecified buttock, stage 1; R91.8 Other nonspecific abnormal finding of lung field; I25.2 Old myocardial infarction; I25.10 Atherosclerotic heart disease of native coronary artery without angina pectoris; Z95.1 Presence of aortocoronary bypass graft
CPT/HCPCS: 36415; 51702; 74022; 74176; 80053; 81001; 83690; 85025; 87077; 87086; 87186; 96372; 99285; J0696

== ENCOUNTER 2018-04-18 15:16 | Emergency (ER) | payer MEDICARE, BC ==
[~2018-04-18] VITALS: Ht 167.6 cm; Wt 62.8 kg
[2018-04-18] MEDS ORDERED: SODIUM CHLORIDE FLUSH 10ML SYR IVF ONE (15:30)
[2018-04-18] MEDS ORDERED: LIDOCAINE 2%,20 ML JEL.PF.APP MM ONE ×2 (16:08→16:30)
[2018-04-18 16:11] LABS: ALANINE AMINOTRANSFERASE 20 U/L (12-78); ALBUMIN 3.1 g/dL (3.4-5.0); ANION GAP 7 mmol/L (5-15); CALCIUM 8.4 mg/dL (8.5-10.1); CHLORIDE 109 mmol/L (98-107); CREATININE 1.07 mg/dL (0.7-1.3); INTERNATIONAL NORMALIZED RATIO 1.06 (0.93-1.1); PROTHROMBIN TIME 10.9 Seconds (9.6-11.5)
[2018-04-18 16:14] LABS: ALKALINE PHOSPHATASE 69 U/L (45-117); BILIRUBIN,TOTAL 0.6 mg/dL (0.2-1.0); TOTAL PROTEIN 7.6 g/dL (6.4-8.2)
[2018-04-18 16:21] LABS: BASOPHILS # (AUTO) 0.03 x10^3/uL (0-0.1); BASOPHILS % (AUTO) 1 % (0-1); EOSINOPHILS # (AUTO) 0.12 x10^3/uL (0-0.4); EOSINOPHILS % (AUTO) 2 % (1-7); LYMPHOCYTES # (AUTO) 1.13 x10^3/uL (1-3.4); LYMPHOCYTES % (AUTO) 21 % (22-44); MD NO; MEAN CORPUSCULAR HEMOGLOBIN 25.9 pg (27.5-34.5); MEAN CORPUSCULAR HGB CONC 32.3 g/dL (33.2-36.2); MEAN CORPUSCULAR VOLUME 80.1 fL (81-97); MEAN PLATELET VOLUME 8.3 fL (7.4-10.4); MONOCYTES # (AUTO) 0.51 x10^3/uL (0.2-0.8); MONOCYTES % (AUTO) 9 % (2-9); NEUTROPHILS # (AUTO) 3.68 x10^3/uL (1.8-6.8); NEUTROPHILS % (AUTO) 67 % (42-75); PLATELET COUNT 352 x10^3/uL (130-400); RED BLOOD COUNT 4.43 x10^6/uL (4.38-5.82); RED CELL DISTRIBUTION WIDTH 18.4 % (9.4-14.8)
[2018-04-18 17:49] LABS: CULTURE INDICATED? YES; MICROSCOPIC INDICATED
[2018-04-18 18:53] VITALS: BP 127/72
[2018-04-19] MEDS ORDERED: FINA5TAB PO (03:01)
== END 2018-04-18 18:56 | disposition home or self-care (01) ==
LOC: ED 17:49
DX: N40.1 Benign prostatic hyperplasia with lower urinary tract symptoms (principal); R33.8 Other retention of urine; N30.01 Acute cystitis with hematuria; Z85.51 Personal history of malignant neoplasm of bladder; M19.90 Unspecified osteoarthritis, unspecified site; I50.9 Heart failure, unspecified
CPT/HCPCS: 36415; 51702; 80053; 81001; 85025; 85610; 85730; 86850; 86900; 87077; 87086; 87186; 99284

== ENCOUNTER 2018-04-19 01:04 | Inpatient (IN) | payer MEDICARE, BC ==
[~2018-04-19] VITALS: Ht 167.6 cm; Wt 62.3 kg
[2018-04-19] MEDS ORDERED: FINA5TAB PO (03:01)
[2018-04-19] MEDS ORDERED: CEFTRIAXONE 1,000 MG ONE (03:20)
[2018-04-19 03:25] LABS: BASOPHILS # (AUTO) 0.04 x10^3/uL (0-0.1); BASOPHILS % (AUTO) 1 % (0-1); EOSINOPHILS # (AUTO) 0.12 x10^3/uL (0-0.4); EOSINOPHILS % (AUTO) 2 % (1-7); LYMPHOCYTES # (AUTO) 1.05 x10^3/uL (1-3.4); LYMPHOCYTES % (AUTO) 21 % (22-44); MD NO; MEAN CORPUSCULAR HEMOGLOBIN 26.2 pg (27.5-34.5); MEAN CORPUSCULAR HGB CONC 32.7 g/dL (33.2-36.2); MEAN CORPUSCULAR VOLUME 80.2 fL (81-97); MEAN PLATELET VOLUME 8.1 fL (7.4-10.4); MONOCYTES # (AUTO) 0.52 x10^3/uL (0.2-0.8); MONOCYTES % (AUTO) 11 % (2-9); NEUTROPHILS # (AUTO) 3.17 x10^3/uL (1.8-6.8); NEUTROPHILS % (AUTO) 65 % (42-75); PLATELET COUNT 323 x10^3/uL (130-400); RED CELL DISTRIBUTION WIDTH 18.7 % (9.4-14.8)
[2018-04-19] MEDS ORDERED: CEFTRIAXONE 1,000 MG IM ONE (03:30)
[2018-04-19 03:36] LABS: ALANINE AMINOTRANSFERASE 19 U/L (12-78); ALBUMIN 2.9 g/dL (3.4-5.0); ANION GAP 7 mmol/L (5-15); CALCIUM 8.1 mg/dL (8.5-10.1); CHLORIDE 109 mmol/L (98-107); CREATININE 0.96 mg/dL (0.7-1.3)
[2018-04-19 03:38] LABS: ALKALINE PHOSPHATASE 63 U/L (45-117); BILIRUBIN,TOTAL 0.4 mg/dL (0.2-1.0); TOTAL PROTEIN 6.9 g/dL (6.4-8.2)
[2018-04-19] MEDS ORDERED: ACETAMINOPHEN 325 MG TABLET PO PRN (04:00)
[2018-04-19] MEDS ORDERED: DOCUSATE 100 MG CAPSULE PO PRN (04:00)
[2018-04-19] MEDS ORDERED: ONDANSETRON 2MG/ML, 2ML IVPush PRN (04:00)
[2018-04-19] MEDS ORDERED: TRAZODONE 50MG TABLET PO PRN (04:00)
[2018-04-19] MEDS ORDERED: ONDANSETRON ODT 4 MG PO PRN (04:00)
[2018-04-19 04:04] VITALS: BP 156/80
[2018-04-19 06:38] VITALS: BP 151/83
[2018-04-19] MEDS ORDERED: OXYcodone IR 5MG TABLET PO PRN (10:00)
[2018-04-19] MEDS ORDERED: morphine SULFATE 10 MG/ML, 1ML IVPush PRN (10:00)
[2018-04-19] MEDS ORDERED: OMNIPAQUE 350 MG/ML, 100ML BOTTLE ONE (11:55)
[2018-04-19] MEDS ORDERED: FINASTERIDE MC SCH (12:00)
[2018-04-19] MEDS: TAMSULOSIN 0.4 MG CAP.ER.24H PO SCH (12:35)
[2018-04-19] MEDS: FINASTERIDE 5 MG TABLET PO SCH (12:35)
[2018-04-19 15:20] VITALS: BP 109/69
[2018-04-19 19:05] VITALS: BP 119/72
[2018-04-19] MEDS ORDERED: FINASTERIDE 5 MG TABLET PO SCH (21:00)
[2018-04-20 00:37] VITALS: BP 119/70
[2018-04-20] MEDS: CEFTRIAXONE PMX IV SCH (04:25)
[2018-04-20 06:42] VITALS: BP 126/72
[2018-04-20] MEDS: FINASTERIDE 5 MG TABLET PO SCH (08:46)
[2018-04-20] MEDS: TAMSULOSIN 0.4 MG CAP.ER.24H PO SCH (08:46)
[2018-04-20 11:43] LABS: BASOPHILS # (AUTO) 0.02 x10^3/uL (0-0.1); BASOPHILS % (AUTO) 1 % (0-1); EOSINOPHILS # (AUTO) 0.14 x10^3/uL (0-0.4); EOSINOPHILS % (AUTO) 3 % (1-7); LYMPHOCYTES # (AUTO) 1.08 x10^3/uL (1-3.4); LYMPHOCYTES % (AUTO) 23 % (22-44); MD NO; MEAN CORPUSCULAR HEMOGLOBIN 26.1 pg (27.5-34.5); MEAN CORPUSCULAR HGB CONC 32.4 g/dL (33.2-36.2); MEAN CORPUSCULAR VOLUME 80.5 fL (81-97); MEAN PLATELET VOLUME 7.7 fL (7.4-10.4); MONOCYTES # (AUTO) 0.53 x10^3/uL (0.2-0.8); MONOCYTES % (AUTO) 11 % (2-9); NEUTROPHILS % (AUTO) 63 % (42-75); PLATELET COUNT 295 x10^3/uL (130-400); RED BLOOD COUNT 3.87 x10^6/uL (4.38-5.82); RED CELL DISTRIBUTION WIDTH 18.9 % (9.4-14.8)
[2018-04-20 11:53] LABS: ANION GAP 5 mmol/L (5-15); CALCIUM 8.5 mg/dL (8.5-10.1); CHLORIDE 107 mmol/L (98-107)
[2018-04-20] MEDS ORDERED: TAMS-11 PO (12:17)
[2018-04-20 12:57] VITALS: BP 113/65
[2018-04-20 19:12] VITALS: BP 121/73
[2018-04-21 01:44] VITALS: BP 130/74
[2018-04-21] MEDS: CEFTRIAXONE PMX IV SCH (04:31)
[2018-04-21 05:31] LABS: BASOPHILS # (AUTO) 0.02 x10^3/uL (0-0.1); BASOPHILS % (AUTO) 0 % (0-1); EOSINOPHILS # (AUTO) 0.15 x10^3/uL (0-0.4); EOSINOPHILS % (AUTO) 3 % (1-7); LYMPHOCYTES # (AUTO) 1.32 x10^3/uL (1-3.4); LYMPHOCYTES % (AUTO) 24 % (22-44); MD NO; MEAN CORPUSCULAR HEMOGLOBIN 25.9 pg (27.5-34.5); MEAN CORPUSCULAR HGB CONC 32.4 g/dL (33.2-36.2); MEAN PLATELET VOLUME 8.2 fL (7.4-10.4); MONOCYTES # (AUTO) 0.57 x10^3/uL (0.2-0.8); MONOCYTES % (AUTO) 11 % (2-9); NEUTROPHILS # (AUTO) 3.36 x10^3/uL (1.8-6.8); NEUTROPHILS % (AUTO) 62 % (42-75); PLATELET COUNT 266 x10^3/uL (130-400); RED BLOOD COUNT 3.77 x10^6/uL (4.38-5.82); RED CELL DISTRIBUTION WIDTH 18.9 % (9.4-14.8)
[2018-04-21 07:05] VITALS: BP 136/76
[2018-04-21] MEDS: TAMSULOSIN 0.4 MG CAP.ER.24H PO SCH (08:31)
[2018-04-21] MEDS: FINASTERIDE 5 MG TABLET PO SCH (08:31)
[2018-04-21] MEDS ORDERED: CEFD300C37 PO (09:06)
[2018-04-21 12:32] VITALS: BP 137/62
== END 2018-04-21 14:12 | disposition home health service (06) | DRG 699 ==
LOC: ED 03:25 → EDIP 03:55 → 3NE 04:00
PROVIDERS: ADMIT Internal Medicine; ATTEND Internal Medicine
DX: T83.83XA Hemorrhage due to genitourinary prosthetic devices, implants and grafts, initial encounter (principal); N39.0 Urinary tract infection, site not specified; N13.8 Other obstructive and reflux uropathy; N40.1 Benign prostatic hyperplasia with lower urinary tract symptoms; R33.8 Other retention of urine; I73.9 Peripheral vascular disease, unspecified; G40.909 Epilepsy, unspecified, not intractable, without status epilepticus; I25.10 Atherosclerotic heart disease of native coronary artery without angina pectoris; D64.9 Anemia, unspecified; M19.90 Unspecified osteoarthritis, unspecified site; Z60.2 Problems related to living alone; R31.0 Gross hematuria; D50.9 Iron deficiency anemia, unspecified; I25.2 Old myocardial infarction; Z95.1 Presence of aortocoronary bypass graft; Z90.79 Acquired absence of other genital organ(s); Z88.0 Allergy status to penicillin; Z88.1 Allergy status to other antibiotic agents; Z23 Encounter for immunization; Y84.6 Urinary catheterization as the cause of abnormal reaction of the patient, or of later complication, without mention of misadventure at the time of the procedure
CPT/HCPCS: 36415; 74177; 80048; 80053; 85025; 90656; 93005; 96372; 99285; G0378; J0696; Q9967

== ENCOUNTER 2018-05-02 10:07 | Emergency (ER) | payer MEDICARE, BC ==
[~2018-05-02] VITALS: Ht 167.6 cm; Wt 61.3 kg
[~2018-05-02 10:07] MED LIST changes: +CEFD300C37 PO
[2018-05-02 10:15] VITALS: BP 153/79
[2018-05-02] MEDS ORDERED: LIDOCAINE-MPF 1%, 5ML INFIL ONE (10:30)
[2018-05-02] MEDS ORDERED: LIDOCAINE-MPF 1%, 5ML ONE (10:32)
== END 2018-05-02 11:15 | disposition home or self-care (01) ==
LOC: ED 11:00
DX: L02.31 Cutaneous abscess of buttock (principal); I25.2 Old myocardial infarction; I25.10 Atherosclerotic heart disease of native coronary artery without angina pectoris; F17.200 Nicotine dependence, unspecified, uncomplicated; Z95.1 Presence of aortocoronary bypass graft
CPT/HCPCS: 10060; 99283

== ENCOUNTER 2019-07-23 12:53 | Emergency (ER) | payer MEDICARE, BC ==
[~2019-07-23] VITALS: Ht 165.1 cm; Wt 65.0 kg
[~2019-07-23 12:53] MED LIST changes: +ACET325T26 PO; +AMLO-150 PO; -AMLO5TAB7 PO; +AMPI500C2 PO; -ASPI-621 PO; +ASPI81TA45 PO; +ATOR10TA9 PO; -LEVE500T13 PO; +LEVE500T22 PO; +LEVE500T53 PO; +LINE600T12 PO; +LINE600T15 PO; -LINE600T37 PO; +LISI5TAB7 PO; +POLY17PO5 PO; +ROSU20CA PO; +VANC1VIA3 IV
--- NOTE | 2019-07-23 13:37 | NUR ---
NIL X 1
--- NOTE | 2019-07-23 13:46 | NUR ---
NIL X2
[2019-07-23 14:04] VITALS: BP 170/101
--- NOTE | 2019-07-23 14:04 | NUR ---
code 250 was called by registration desk at [facility] because pt looked as if he was in pain. pt found in wheelchair with bracelet on arm still. pt is taken to triage room for triage. code 250 cancelled. pt being triaged at this time. pt [id number]
--- NOTE | 2019-07-23 15:50 | NUR ---
SECURITY NOTIFIED THIS RN THAT PT HAD THEM CALL TAXI FOR HIM HE WANTED TO LEAVE.
== END 2019-07-23 16:33 | disposition left against medical advice (07) ==
LOC: ED 16:27
DX: R33.9 Retention of urine, unspecified (principal); Z53.21 Procedure and treatment not carried out due to patient leaving prior to being seen by health care provider

== ENCOUNTER 2019-07-23 17:12 | Emergency (ER) | payer MEDICARE, BC ==
[~2019-07-23] VITALS: Ht 167.6 cm; Wt 66.0 kg
[2019-07-23] MEDS ORDERED: NEOSPORIN OINT. PKT 1 PACKET ONE (17:26)
--- NOTE | 2019-07-23 18:00 | NUR ---
PT TOLERATED CATHETER PLACEMENT WELL. UA COLLECTED. PT REPORTS ABSENCE OF PAIN FOLLOWING INSERTION. SIDE RAILS UP, CALL LIGHT IN REACH.
--- NOTE | 2019-07-23 18:05 | NUR ---
UA SENT TO LAB
[2019-07-23] MEDS ORDERED: SODIUM CHLORIDE FLUSH 10ML SYR IVF ONE (19:00)
[2019-07-23 19:06] LABS: BASOPHILS % (AUTO) 0 % (0-1); EOSINOPHILS # (AUTO) 0.02 x10^3/uL (0-0.4); EOSINOPHILS % (AUTO) 0 % (1-7); LYMPHOCYTES # (AUTO) 0.48 x10^3/uL (1-3.4); LYMPHOCYTES % (AUTO) 5 % (22-44); MD NO; MEAN CORPUSCULAR HEMOGLOBIN 30.2 pg (27.5-34.5); MEAN CORPUSCULAR HGB CONC 32.8 g/dL (33.2-36.2); MEAN CORPUSCULAR VOLUME 92.2 fL (81-97); MEAN PLATELET VOLUME 8.3 fL (7.4-10.4); MONOCYTES # (AUTO) 0.46 x10^3/uL (0.2-0.8); MONOCYTES % (AUTO) 5 % (2-9); NEUTROPHILS # (AUTO) 8.76 x10^3/uL (1.8-6.8); NEUTROPHILS % (AUTO) 90 % (42-75); PLATELET COUNT 254 x10^3/uL (130-400); RED BLOOD COUNT 4.47 x10^6/uL (4.38-5.82)
[2019-07-23 19:13] LABS: ALANINE AMINOTRANSFERASE 18 U/L (12-78); ALBUMIN 3.3 g/dL (3.4-5.0); ANION GAP 4 mmol/L (5-15); CALCIUM 9.2 mg/dL (8.5-10.1); CHLORIDE 108 mmol/L (98-107); CREATININE 1.03 mg/dL (0.7-1.3)
--- NOTE | 2019-07-23 19:13 | NUR ---
PT LAYING BACK IN BED, RESPIRATIONS EVEN AND UNLABORED ON RA. NAD NOTED AT THIS TIME. LAB DRAWN AND IV START. AWAITING FURTHER ORDERS.
[2019-07-23 19:15] LABS: ALKALINE PHOSPHATASE 105 U/L (45-117); BILIRUBIN,TOTAL 0.9 mg/dL (0.2-1.0); TOTAL PROTEIN 7.9 g/dL (6.4-8.2)
[2019-07-23 19:33] LABS: CULTURE INDICATED? YES; MICROSCOPIC INDICATED
--- NOTE | 2019-07-23 20:07 | NUR ---
PREPPING PT FOR DC.
[2019-07-23 20:39] VITALS: BP 154/78
== END 2019-07-23 20:40 | disposition home or self-care (01) ==
LOC: ED 20:34
DX: N30.00 Acute cystitis without hematuria (principal); R33.9 Retention of urine, unspecified; I10 Essential (primary) hypertension; I25.10 Atherosclerotic heart disease of native coronary artery without angina pectoris; I25.2 Old myocardial infarction; G40.909 Epilepsy, unspecified, not intractable, without status epilepticus
CPT/HCPCS: 36415; 51702; 80053; 81001; 83605; 83690; 85025; 87040; 87077; 87086; 87186; 93005; 99284

== ENCOUNTER 2019-11-05 16:40 | Emergency (ER) | payer MEDICARE, BC ==
[~2019-11-05] VITALS: Ht 167.6 cm; Wt 66.0 kg
--- NOTE | 2019-11-05 16:59 | NUR ---
[facility] IS [facility] 79 [facility]. PER [facility], PATIENT WALKS SAME ROUTE EVERY DAY, BYSTANDER WENT OUT OF HOUSE TO CHECK ON PATIENT AND PATIENT STATED HE FELL. BYSTANDER CALLED [facility]. PER [facility], PATIENT WAS CLAMMY ON SCENE AND STATED HE FELT WEAK AND THAT IS WHY HE TRIPPED AND FELL. BGL IN FIELD WAS 125, BP 124/82, NEGATIVE STROKE SCALE WITH [facility]. PATIENT ALSO C/O TWISTED RIGHT ANKLE, DENIES ANY PAIN AT THIS TIME. ALL MONITORING IN PLACE, OCCASIONAL AFIB ON MONITOR, 12 LEAD GIVEN BY [facility] SHOWS BBB. CALL LIGHT IN REACH, PATIENT DENIES ANY NEEDS AT THIS TIME.
--- NOTE | 2019-11-05 17:03 | NUR ---
ERP IN ROOM
--- NOTE | 2019-11-05 17:15 | NUR ---
PATIENT AMBULATORY WITH STEADY GAIT, STATES HE USES A WALKER IN HIS HOUSE BU NOT WHEN HE GOES OUTSIDE TO WALK. THIS RN HAD EXTENSIVE CONVERSATION WITH PATIETN ABOUT USING HIS WALKER WHEN HE GOES OUTSIDE ON HIS WALKS TO PREVENT FUTURE FALLS AND KEEP HIM SAFE. PATIENT STATES HE WILL START USING IT.
--- NOTE | 2019-11-05 17:19 | NUR ---
CALL PLACED TO DAUGHTER, ANA, TO OBTAIN MORE INFORMATION ABOUT PATIENT AND FOR TRANSPORT. DAUGHTER DID NOT ANSWER PHONE, THIS RN LEFT VOICEMAIL.
--- NOTE | 2019-11-05 17:31 | NUR ---
THIS RN SPOKE WITH ANA, DAUGHTER. ANA STATES HIS BASELINE IS "A LITTLE CONFUSED. IT'S NORMAL FOR HIM NOT TO KNOW THE DAY OR YEAR". ANA STATES SHE FEELS COMFORTABLE WITH HIM BEING DISCHARGED AFTER BEING UPDATED. KENNY, SON OF PATIENT TO BE HERE FOR SAFE DISCHARGE.
[2019-11-05 17:50] VITALS: BP 123/80
--- NOTE | 2019-11-05 17:51 | NUR ---
THIS RN SPOKE WITH ANA, CANDI. ANA STATES HER OR PATIENT'S SON WILL BE HERE FOR TRANSPORT IN 45MINS TO 1 HOUR. PATIENT TO WAIT IN ROOM
--- NOTE | 2019-11-05 19:07 | NUR ---
PATIENT AMBULATORY WITH STEADY GAIT TO DISCHARGE, SON IS HERE FOR SAFE DISHCARGE AND TRANSPORT
== END 2019-11-05 19:09 | disposition home or self-care (01) ==
LOC: ED 19:00
DX: R68.89 Other general symptoms and signs (principal); R94.31 Abnormal electrocardiogram [ECG] [EKG]; I25.10 Atherosclerotic heart disease of native coronary artery without angina pectoris; I11.9 Hypertensive heart disease without heart failure; W01.0XXA Fall on same level from slipping, tripping and stumbling without subsequent striking against object, initial encounter; Y93.89 Activity, other specified; Y92.410 Unspecified street and highway as the place of occurrence of the external cause; Y99.8 Other external cause status
CPT/HCPCS: 93005; 99283

== ENCOUNTER 2019-11-17 19:04 | Emergency (ER) | payer MEDICARE, BC ==
[~2019-11-17] VITALS: Ht 167.6 cm; Wt 60.3 kg
--- NOTE | 2019-11-17 19:20 | NUR ---
PT PRESENTING TO ER TO GET MARROQUIN REMOVED. PA AT BEDSIDE FOR ASSESSMENT. PT STS DOES NOT HAVE A UROLOGIST AND DOESNT KNOW HOW LONG IT HAS BEEN IN. CONNECTED TO MONITORING, VSS. CALL LIGHT WITHIN REACH. AWAITING FURTHER INSTRUCTION
--- NOTE | 2019-11-17 20:03 | NUR ---
PA SPOKE WITH PT DAUGHTER, STS HE HAS UROLOGY APT NEXT WEEK. ISSUES IN PAST WITH PT ATTEMPTING TO GET MARROQUIN REMOVED. HX OF BPH AND RETENTION. PT TO BE DCd HOME IN CAB WHERE DAUGHTER WILL MEET HIM. SITUATION EXPLAINED TO PT, STS UNDERSTANDING AND WILLINGNESS TO COMPLY
[2019-11-17 20:05] VITALS: BP 133/77
--- NOTE | 2019-11-17 20:12 | NUR ---
REPORT GIVEN TO HOWARD BATES
== END 2019-11-17 20:30 | disposition home or self-care (01) ==
LOC: ED 19:58
DX: N40.1 Benign prostatic hyperplasia with lower urinary tract symptoms (principal); R33.8 Other retention of urine; I10 Essential (primary) hypertension; I25.10 Atherosclerotic heart disease of native coronary artery without angina pectoris; I25.2 Old myocardial infarction; Z95.1 Presence of aortocoronary bypass graft
CPT/HCPCS: 99281

== ENCOUNTER 2019-12-31 15:55 | Emergency (ER) | payer MEDICARE, BC ==
[~2019-12-31] VITALS: Ht 167.6 cm; Wt 59.0 kg
[2019-12-31 16:09] VITALS: BP 157/100
--- NOTE | 2019-12-31 16:50 | NUR ---
ARRIVED TO PTS RM. PT STATES "I DONT KNOW WHY IM HERE, I WANT THIS CATHETER OUT. I DONT WANT TO HAVE IT FOREVER" DAUGHTER CALLED, WHO HELPS WITH HIS CARE. DAUGHTER EXPLAINS TO THIS RN THAT HE CANNOT PEE WITHOUT HIS CATHETER AND IS IN FACT IS WAITING ON A SURGERY. THIS IS DISCUSSED WITH ERMD, DISCUSSED WITH PT HE NEEDS TO FOLLOW UP WITH UROLOGY.
--- NOTE | 2019-12-31 17:22 | NUR ---
SPOKE WITH DAUGHTER AGAIN, SHE STATES THIS IS NORMAL BEHAVIOR FOR HER FATHER, HE DOES GO TO THE ER FREQUENTLY TO CONVINCE STAFF TO REMOVE HIS MARROQUIN, "HES JUST BEING A GRUMPY MAN, HE DOES THAT" ERMD UPDATED, PLAN TO DC. WILL PROVIDE PT WITH TAXI VOUCHER
== END 2019-12-31 17:42 | disposition home or self-care (01) ==
LOC: ED 17:00
DX: R33.8 Other retention of urine (principal); I10 Essential (primary) hypertension
CPT/HCPCS: 99281

== ENCOUNTER 2020-03-05 19:13 | Emergency (ER) | payer MEDICARE, BC ==
[~2020-03-05] VITALS: Ht 167.6 cm; Wt 56.0 kg
[2020-03-05 19:16] VITALS: BP 152/87
--- NOTE | 2020-03-05 19:33 | NUR ---
THIS IS AN 79Y M THAT COMES IN TONIGHT FOR BLOOD IN URINE. PT HAS MARROQUIN IN PLACE UPON ARRIVAL. NO BLOOD NOTED BUT URINE DARK IN COLOR WITH STRONG ODOR. PT CONNECTED TO PULSE OX, DAUGHTER CALLED TO VERIFY SAFETY OF PT AT HOME ALONE. PER DAUGHTER PT NEIGHBORS CHECK ON HIM DAILY AND SHE CHECKS ON HIM FREQUENTLY.
--- NOTE | 2020-03-05 19:33 | NUR ---
PT CHANGING INTO GOWN AT THIS TIME
--- NOTE | 2020-03-05 19:50 | NUR ---
MARROQUIN CARE DONE, MARROQUIN FLUSHED W/OUT DIFFICULTY. STAT LOCK PLACED PT EDUCATED ON MARROQUIN CARE
--- NOTE | 2020-03-05 20:08 | NUR ---
URINE WALKED TO LAB
[2020-03-05 20:09] LABS: BASOPHILS # (AUTO) 0.03 x10^3/uL (0-0.1); BASOPHILS % (AUTO) 0 % (0-1); EOSINOPHILS # (AUTO) 0.05 x10^3/uL (0-0.4); EOSINOPHILS % (AUTO) 1 % (1-7); LYMPHOCYTES # (AUTO) 1.09 x10^3/uL (1-3.4); LYMPHOCYTES % (AUTO) 14 % (22-44); MD NO; MEAN CORPUSCULAR HEMOGLOBIN 30.7 pg (27.5-34.5); MEAN CORPUSCULAR HGB CONC 32.8 g/dL (33.2-36.2); MEAN CORPUSCULAR VOLUME 93.7 fL (81-97); MEAN PLATELET VOLUME 8.6 fL (7.4-10.4); MONOCYTES # (AUTO) 0.41 x10^3/uL (0.2-0.8); MONOCYTES % (AUTO) 5 % (2-9); NEUTROPHILS # (AUTO) 6.12 x10^3/uL (1.8-6.8); NEUTROPHILS % (AUTO) 80 % (42-75); PLATELET COUNT 225 x10^3/uL (130-400); RED BLOOD COUNT 4.86 x10^6/uL (4.38-5.82); RED CELL DISTRIBUTION WIDTH 14.8 % (9.4-14.8)
[2020-03-05 20:21] LABS: ALANINE AMINOTRANSFERASE 16 U/L (12-78); ALBUMIN 3.9 g/dL (3.4-5.0); ANION GAP 7 mmol/L (5-15); CALCIUM 9.4 mg/dL (8.5-10.1); CHLORIDE 107 mmol/L (98-107); CREATININE 1.29 mg/dL (0.7-1.3)
[2020-03-05 20:23] LABS: ALKALINE PHOSPHATASE 70 U/L (45-117); BILIRUBIN,TOTAL 1.5 mg/dL (0.2-1.0); TOTAL PROTEIN 8.5 g/dL (6.4-8.2)
[2020-03-05 20:33] LABS: MICROSCOPIC INDICATED
[2020-03-05] MEDS ORDERED: CEFTRIAXONE 1,000 MG ONE (21:17)
[2020-03-05] MEDS ORDERED: LIDOCAINE-MPF 1%, 5ML ONE (21:17)
--- NOTE | 2020-03-05 21:25 | NUR ---
PT MEDICATED PER MAR
[2020-03-05] MEDS ORDERED: CEFTRIAXONE 1,000 MG IM ONE (21:30)
--- NOTE | 2020-03-05 21:31 | NUR ---
DAUGHTER CALLED AND UPDATED PT TO DC AT THIS TIME. STS SHE WILL BE CHECKING ON HIM FREQUENTLY
--- NOTE | 2020-03-05 21:53 | NUR ---
Patient given discharge instructions and they have confirmed that they understand the instructions. Patient ambulatory with steady gait. GIVEN CAB VOUCHER, NAD, VSS. PT LEFT WITH ALL PERSONAL BELONGINGS AND DC PAPERS.
== END 2020-03-05 21:54 | disposition home or self-care (01) ==
LOC: ED 21:07
DX: T80.211A Bloodstream infection due to central venous catheter, initial encounter (principal); N30.01 Acute cystitis with hematuria; I25.10 Atherosclerotic heart disease of native coronary artery without angina pectoris; I10 Essential (primary) hypertension; I25.2 Old myocardial infarction; Z87.891 Personal history of nicotine dependence
CPT/HCPCS: 36415; 80053; 81001; 85025; 87077; 87086; 87186; 96372; 99284; J0696; 51702

== ENCOUNTER 2020-04-27 10:41 | Inpatient (IN) | payer MEDICARE, BC ==
[~2020-04-27] VITALS: Ht 167.6 cm; Wt 55.7 kg
[2020-04-27 11:22] VITALS: BP 163/89
[2020-04-27] MEDS ORDERED: CHLORHEXIDINE 15 ML UDC ONE (11:28)
[2020-04-27] MEDS ORDERED: LACTATED RINGERS 1,000 ML IV SCH (11:30)
[2020-04-27] MEDS ORDERED: CHLORHEXIDINE 15 ML UDC MM ONE (11:30)
[2020-04-27] MEDS ORDERED: FENTANYL PF 250 MCG/5ML ONE (11:38)
[2020-04-27] MEDS ORDERED: GENTAMICIN 80 MG/2 ML ONE (12:02)
[2020-04-27] MEDS ORDERED: CEFAZOLIN 1,000 MG ONE (12:02)
[2020-04-27] MEDS ORDERED: GLYCOPYRROLATE 0.2MG/1ML, 5ML ONE (12:02)
[2020-04-27] MEDS ORDERED: SUCCINYLCHOLINE 20 MG/ML, 10ML ONE (12:04)
[2020-04-27] MEDS ORDERED: ROCURONIUM 10MG/ML,5ML ONE (12:04)
[2020-04-27] MEDS ORDERED: DEXAMETHASONE 4 MG/ML, 1ML ONE ×2 (12:04)
[2020-04-27] MEDS ORDERED: PROPOFOL 10 MG/ML, 20ML ONE (12:04)
[2020-04-27] MEDS ORDERED: LEVE500T53 PO (12:12)
[2020-04-27] MEDS ORDERED: ASPI81TA45 PO (12:12)
[2020-04-27] MEDS ORDERED: FINA5TAB4 PO (12:12)
[2020-04-27] MEDS ORDERED: LISI-167 PO (12:12)
[2020-04-27] MEDS ORDERED: TAMS-11 PO (12:12)
[2020-04-27] MEDS ORDERED: ROSU20TA2 PO (12:12)
[2020-04-27] MEDS ORDERED: ACET325S PO (12:12)
[2020-04-27 12:30] LABS: INTERNATIONAL NORMALIZED RATIO 1.04 (0.93-1.1)
[2020-04-27] MEDS ORDERED: EPHEDRINE 50 MG/ML, 1ML IVPush PRN (12:30)
[2020-04-27] MEDS ORDERED: PROMETHAZINE 25 MG/ML, 1ML IVPush PRN (12:30)
[2020-04-27] MEDS ORDERED: ALBUTEROL SULFATE 2.5 MG/3 ML NPPB PRN (12:30)
[2020-04-27] MEDS ORDERED: MIDAZOLAM 1 MG/ML, 2ML IV PRN (12:30)
[2020-04-27] MEDS ORDERED: LABETALOL 5MG/ML, 20ML IV PRN (12:30)
[2020-04-27] MEDS ORDERED: DIPHENHYDRAMINE 50 MG/ML, 1ML IVPush PRN (12:30)
[2020-04-27] MEDS ORDERED: ACETAMINOPHEN 325 MG TABLET PO PRN ×2 (12:30→16:00)
[2020-04-27] MEDS ORDERED: MEPERIDINE/PF 25MG/0.5ML IVPush PRN (12:30)
[2020-04-27] MEDS ORDERED: OXYcodone 5 MG/5 ML ORAL.SOL UDC PO PRN (12:30)
[2020-04-27] MEDS ORDERED: ONDANSETRON 2MG/ML, 2ML IVPush PRN ×2 (12:30→16:00)
[2020-04-27] MEDS ORDERED: hydrALAzine 20 MG/ML, 1ML IV PRN (12:30)
[2020-04-27] MEDS ORDERED: DIAZEPAM 5 MG/ML, 2ML IVPush PRN (12:30)
[2020-04-27] MEDS ORDERED: HYDROmorphone 1 MG/ML, 1ML INJ IVPush PRN (12:30)
[2020-04-27] MEDS ORDERED: PROMETHAZINE 12.5 MG SUPP PR PRN (12:30)
[2020-04-27] MEDS ORDERED: OPIUM/BELLADONNA SUPP.RECT 16.2-60 MG ONE (13:10)
[2020-04-27] MEDS ORDERED: ONDANSETRON 2MG/ML, 2ML ONE ×2 (13:55)
[2020-04-27] MEDS ORDERED: FENTANYL PF 100 MCG/2ML ONE (14:20)
[2020-04-27] MEDS ORDERED: OXYcodone 5 MG/5 ML ORAL.SOL UDC ONE (14:21)
[2020-04-27] MEDS: FENTANYL PF 100 MCG/2ML IV PRN ×2 (14:25→14:30)
[2020-04-27] MEDS ORDERED: PROMETHAZINE 25 MG/ML, 1ML ONE (14:39)
[2020-04-27] MEDS ORDERED: CEFAZOLIN 1,000 MG IM SCH (16:00)
[2020-04-27] MEDS ORDERED: OPIUM/BELLADONNA SUPP.RECT 16.2-30 MG PR PRN (16:00)
[2020-04-27 17:02] LABS: ALBUMIN 2.8 g/dL (3.4-5.0); ANION GAP 6 mmol/L (5-15); CALCIUM 8.2 mg/dL (8.5-10.1); CHLORIDE 107 mmol/L (98-107); CREATININE 0.86 mg/dL (0.7-1.3)
[2020-04-27] MEDS: CEFAZOLIN PMX 1GM/50ML 50 ML IV SCH (19:44)
[2020-04-27] MEDS: GENTAMICIN 80 MG in SODIUM CHLORIDE 0.9% 50 ML IVPB SCH (20:41)
[2020-04-28 00:02] VITALS: BP 100/57
[2020-04-28] MEDS: SODIUM CHLORIDE 0.9% 1,000 ML IV SCH ×2 (03:29→20:16)
[2020-04-28 03:33] VITALS: BP 118/71
[2020-04-28] MEDS: CEFAZOLIN PMX 1GM/50ML 50 ML IV SCH (03:43)
[2020-04-28] MEDS: GENTAMICIN 80 MG in SODIUM CHLORIDE 0.9% 50 ML IVPB SCH (04:17)
[2020-04-28 05:07] LABS: ANION GAP 5 mmol/L (5-15); CALCIUM 8.3 mg/dL (8.5-10.1); CHLORIDE 107 mmol/L (98-107); CREATININE 1.08 mg/dL (0.7-1.3)
[2020-04-28 07:58] VITALS: BP 101/56
[2020-04-28 12:15] VITALS: BP 128/61
[2020-04-28] MEDS ORDERED: PHARMACOKINETIC CONSULTATION MC ONE (13:00)
[2020-04-28] MEDS ORDERED: GENTAMICIN 300 MG in SODIUM CHLORIDE 0.9% 100 ML IV SCH (13:00)
[2020-04-28] MEDS ORDERED: GENTAMICIN PER PHARMACY MC PRN (13:00)
[2020-04-28] MEDS ORDERED: PHARMACOKINETIC MONITORING MC PRN (13:00)
[2020-04-28 13:14] LABS: BASOPHILS % (AUTO) 0 % (0-1); EOSINOPHILS % (AUTO) 0 % (1-7); LYMPHOCYTES % (AUTO) 7 % (22-44); MEAN CORPUSCULAR HEMOGLOBIN 30.9 pg (27.5-34.5); MEAN CORPUSCULAR HGB CONC 32.8 g/dL (33.2-36.2); MEAN PLATELET VOLUME 8.4 fL (7.4-10.4); MONOCYTES % (AUTO) 8 % (2-9); NEUTROPHILS % (AUTO) 85 % (42-75); PLATELET COUNT 241 x10^3/uL (130-400); RED BLOOD COUNT 3.61 x10^6/uL (4.38-5.82); RED CELL DISTRIBUTION WIDTH 15.2 % (9.4-14.8)
[2020-04-28] MEDS ORDERED: CEFTRIAXONE PMX 2GM/50ML 50 ML IVPB ONE (13:30)
[2020-04-28 13:47] LABS: MD SCAN
[2020-04-28 20:48] VITALS: BP 154/84
[2020-04-29 01:39] VITALS: BP 161/79
[2020-04-29] MEDS ORDERED: GENTAMICIN 300 MG in SODIUM CHLORIDE 0.9% 100 ML IV SCH (03:00)
[2020-04-29 06:16] LABS: CHLORIDE 104 mmol/L (98-107)
[2020-04-29 06:22] LABS: BASOPHILS % (AUTO) 0 % (0-1); EOSINOPHILS % (AUTO) 0 % (1-7); LYMPHOCYTES % (AUTO) 7 % (22-44); MEAN CORPUSCULAR HEMOGLOBIN 30.9 pg (27.5-34.5); MEAN CORPUSCULAR HGB CONC 32.9 g/dL (33.2-36.2); MEAN PLATELET VOLUME 8.7 fL (7.4-10.4); MONOCYTES % (AUTO) 10 % (2-9); NEUTROPHILS % (AUTO) 84 % (42-75); PLATELET COUNT 216 x10^3/uL (130-400); RED CELL DISTRIBUTION WIDTH 15.3 % (9.4-14.8)
[2020-04-29 06:26] LABS: ANION GAP 5 mmol/L (5-15); CALCIUM 8.1 mg/dL (8.5-10.1)
[2020-04-29 06:52] LABS: MD SCAN
[2020-04-29 08:18] VITALS: BP 128/75
[2020-04-29] MEDS: CEFTRIAXONE PMX 1GM/50ML 50 ML IV SCH (13:08)
[2020-04-29 14:26] VITALS: BP 106/62
[2020-04-29] MEDS: DOCUSATE 100 MG CAPSULE PO SCH (20:17)
[2020-04-29] MEDS: SODIUM CHLORIDE 0.9% 1,000 ML IV SCH (20:17)
[2020-04-29 21:14] VITALS: BP 102/59
[2020-04-30] MEDS ORDERED: GENTAMICIN 300 MG in SODIUM CHLORIDE 0.9% 100 ML IV SCH (02:00)
[2020-04-30 02:22] VITALS: BP 114/48
[2020-04-30 06:10] LABS: BASOPHILS % (AUTO) 0 % (0-1); EOSINOPHILS % (AUTO) 0 % (1-7); LYMPHOCYTES % (AUTO) 11 % (22-44); MEAN CORPUSCULAR HEMOGLOBIN 31.2 pg (27.5-34.5); MEAN PLATELET VOLUME 8.7 fL (7.4-10.4); MONOCYTES % (AUTO) 10 % (2-9); NEUTROPHILS % (AUTO) 78 % (42-75); PLATELET COUNT 195 x10^3/uL (130-400); RED BLOOD COUNT 3.25 x10^6/uL (4.38-5.82); RED CELL DISTRIBUTION WIDTH 14.8 % (9.4-14.8)
[2020-04-30 06:18] LABS: ANION GAP 8 mmol/L (5-15); CALCIUM 7.7 mg/dL (8.5-10.1); CHLORIDE 108 mmol/L (98-107); CREATININE 0.89 mg/dL (0.7-1.3)
[2020-04-30 06:35] LABS: MD NO
[2020-04-30] MEDS: DOCUSATE 100 MG CAPSULE PO SCH ×2 (08:08→20:14)
[2020-04-30] MEDS: FINASTERIDE 5 MG TABLET PO SCH (08:08)
[2020-04-30 08:24] VITALS: BP 135/79
[2020-04-30] MEDS: CEFTRIAXONE PMX 1GM/50ML 50 ML IV SCH (13:24)
[2020-04-30] MEDS: SODIUM CHLORIDE 0.9% 1,000 ML IV SCH (14:52)
[2020-04-30 15:02] VITALS: BP 114/67
[2020-04-30] MEDS: HALOPERIDOL 5 MG/ML IM PRN (22:14)
[2020-05-01] MEDS: HALOPERIDOL 5 MG/ML IM PRN (02:34)
[2020-05-01 07:37] VITALS: BP 156/81
[2020-05-01] MEDS: DOCUSATE 100 MG CAPSULE PO SCH ×2 (09:00→21:00)
[2020-05-01] MEDS: FINASTERIDE 5 MG TABLET PO SCH (09:00)
[2020-05-01] MEDS: SODIUM CHLORIDE 0.9% 1,000 ML IV SCH (11:00)
[2020-05-01] MEDS: CEFTRIAXONE PMX 1GM/50ML 50 ML IV SCH (13:30)
[2020-05-01 15:24] VITALS: BP 139/71
[2020-05-01] MEDS ORDERED: INSTRUCTION SEE COMMENTS XX PRN (15:30)
[2020-05-01] MEDS ORDERED: QUETIAPINE 25MG TABLET PO PRN (15:30)
[2020-05-01] MEDS: QUETIAPINE 25MG TABLET PO SCH ×2 (16:30→21:03)
[2020-05-01 19:28] VITALS: BP 133/79
[2020-05-01] MEDS: MELATONIN 3 MG TABLET PO SCH (21:03)
[2020-05-02 03:06] VITALS: BP 101/61
[2020-05-02 06:19] LABS: ALANINE AMINOTRANSFERASE 13 U/L (12-78); ALBUMIN 2.4 g/dL (3.4-5.0); ANION GAP 5 mmol/L (5-15); BASOPHILS % (AUTO) 0 % (0-1); CHLORIDE 108 mmol/L (98-107); CREATININE 0.98 mg/dL (0.7-1.3); EOSINOPHILS % (AUTO) 2 % (1-7); LYMPHOCYTES % (AUTO) 14 % (22-44); MEAN CORPUSCULAR HEMOGLOBIN 30.8 pg (27.5-34.5); MEAN CORPUSCULAR HGB CONC 33.4 g/dL (33.2-36.2); MEAN PLATELET VOLUME 8.2 fL (7.4-10.4); MONOCYTES % (AUTO) 14 % (2-9); NEUTROPHILS % (AUTO) 70 % (42-75); PLATELET COUNT 261 x10^3/uL (130-400); RED BLOOD COUNT 3.35 x10^6/uL (4.38-5.82); RED CELL DISTRIBUTION WIDTH 14.9 % (9.4-14.8)
[2020-05-02] MEDS ORDERED: GENTAMICIN PER PHARMACY MC PRN (06:30)
[2020-05-02 06:40] LABS: MD NO
[2020-05-02 06:46] LABS: ALKALINE PHOSPHATASE 60 U/L (45-117); BILIRUBIN,TOTAL 0.7 mg/dL (0.2-1.0); TOTAL PROTEIN 6.2 g/dL (6.4-8.2)
[2020-05-02] MEDS ORDERED: PHARMACOKINETIC CONSULTATION MC ONE (07:00)
[2020-05-02] MEDS ORDERED: PHARMACOKINETIC MONITORING MC PRN (07:00)
[2020-05-02 07:30] VITALS: BP 135/76
[2020-05-02] MEDS: DOCUSATE 100 MG CAPSULE PO SCH ×2 (09:19→21:00)
[2020-05-02] MEDS: SODIUM CHLORIDE 0.9% 1,000 ML IV SCH (09:19)
[2020-05-02] MEDS: FINASTERIDE 5 MG TABLET PO SCH (09:19)
[2020-05-02] MEDS: CEFTRIAXONE PMX 1GM/50ML 50 ML IV SCH (09:19)
[2020-05-02] MEDS: QUETIAPINE 25MG TABLET PO SCH ×2 (09:20→20:00)
[2020-05-02 13:21] VITALS: BP 114/70
[2020-05-02 18:34] VITALS: BP 130/79
[2020-05-02] MEDS: MELATONIN 3 MG TABLET PO SCH (20:00)
[2020-05-03 06:54] VITALS: BP 147/80
[2020-05-03] MEDS: QUETIAPINE 25MG TABLET PO SCH ×2 (09:43→23:22)
[2020-05-03] MEDS: DOCUSATE 100 MG CAPSULE PO SCH ×2 (09:43→23:22)
[2020-05-03] MEDS: FINASTERIDE 5 MG TABLET PO SCH (09:44)
[2020-05-03] MEDS: SODIUM CHLORIDE 0.9% 1,000 ML IV SCH (09:44)
[2020-05-03] MEDS: CEFTRIAXONE PMX 1GM/50ML 50 ML IV SCH (09:44)
[2020-05-03 13:21] VITALS: BP 133/70
[2020-05-03 14:24] LABS: BASOPHILS % (AUTO) 0 % (0-1); EOSINOPHILS % (AUTO) 1 % (1-7); LYMPHOCYTES % (AUTO) 14 % (22-44); MEAN CORPUSCULAR HEMOGLOBIN 30.3 pg (27.5-34.5); MEAN CORPUSCULAR HGB CONC 32.1 g/dL (33.2-36.2); MONOCYTES % (AUTO) 11 % (2-9); NEUTROPHILS % (AUTO) 73 % (42-75); PLATELET COUNT 328 x10^3/uL (130-400); RED BLOOD COUNT 3.85 x10^6/uL (4.38-5.82)
[2020-05-03 14:25] LABS: MD NO
[2020-05-03 14:37] LABS: ALBUMIN 2.7 g/dL (3.4-5.0); ANION GAP 5 mmol/L (5-15); CALCIUM 8.3 mg/dL (8.5-10.1); CHLORIDE 109 mmol/L (98-107)
[2020-05-03 14:41] LABS: CREATININE 0.92 mg/dL (0.7-1.3)
[2020-05-03 14:42] LABS: ALANINE AMINOTRANSFERASE 13 U/L (12-78); ALKALINE PHOSPHATASE 74 U/L (45-117); BILIRUBIN,TOTAL 0.5 mg/dL (0.2-1.0); TOTAL PROTEIN 7.2 g/dL (6.4-8.2)
[2020-05-03 20:25] VITALS: BP 144/78
[2020-05-03] MEDS ORDERED: NITROFURANTOIN (MACROBID) 100 MG CAPSULE PO SCH (21:00)
[2020-05-03] MEDS: MELATONIN 3 MG TABLET PO SCH (23:22)
[2020-05-04] MEDS: SODIUM CHLORIDE 0.9% 1,000 ML IV SCH (02:44)
[2020-05-04 03:14] VITALS: BP 133/68
[2020-05-04 06:34] VITALS: BP 148/79
[2020-05-04] MEDS: DOCUSATE 100 MG CAPSULE PO SCH (08:54)
[2020-05-04] MEDS: FINASTERIDE 5 MG TABLET PO SCH (08:54)
[2020-05-04] MEDS: CEFTRIAXONE PMX 1GM/50ML 50 ML IV SCH (08:55)
[2020-05-04] MEDS: QUETIAPINE 25MG TABLET PO SCH (08:55)
[2020-05-04] MEDS ORDERED: LEVOFLOXACIN 500 MG TABLET PO SCH (09:00)
[2020-05-04 13:46] VITALS: BP 129/69
[2020-05-04] MEDS ORDERED: QUET25TA7 PO (16:18)
== END 2020-05-04 17:42 | DRG 713 ==
LOC: OUT 10:41 → ORIP 15:46 → 4NE 18:36
PROVIDERS: ADMIT Urology; ATTEND Urology
PROC: 0VB08ZZ Excision of Prostate, Via Natural or Artificial Opening Endoscopic (ICD-10-PCS; principal; 2020-04-27 12:30)
DX: N40.1 Benign prostatic hyperplasia with lower urinary tract symptoms (principal); F23 Brief psychotic disorder; N39.0 Urinary tract infection, site not specified; E87.1 Hypo-osmolality and hyponatremia; R33.8 Other retention of urine; I25.10 Atherosclerotic heart disease of native coronary artery without angina pectoris; G40.909 Epilepsy, unspecified, not intractable, without status epilepticus; F39 Unspecified mood [affective] disorder; F22 Delusional disorders; B95.2 Enterococcus as the cause of diseases classified elsewhere; Z95.1 Presence of aortocoronary bypass graft; Z20.828 Contact with and (suspected) exposure to other viral communicable diseases; Z91.19 Patient's noncompliance with other medical treatment and regimen; Z91.14 Patient's other noncompliance with medication regimen; Z90.79 Acquired absence of other genital organ(s); Z87.440 Personal history of urinary (tract) infections; Z82.49 Family history of ischemic heart disease and other diseases of the circulatory system; Z88.5 Allergy status to narcotic agent; Z88.0 Allergy status to penicillin
CPT/HCPCS: 36415; 80048; 80053; 80170; 82040; 82140; 82607; 84443; 85014; 85018; 85025; 85610; 86592; 87040; 87635; 88305; 93005; G0378; J0690; J0696; J1100; J2405; J2550; J2704; J3010; 92523-GN; J0330; J1580; J1630; J7030